=== PATIENT | female | born 1990 | race Caucasian/White ===

== ENCOUNTER 2017-04-05 16:59 | Inpatient (IN) | payer OTHER ==
[~2017-04-05] VITALS: Ht 157.5 cm; Wt 59.0 kg
[2017-04-05 17:00] VITALS: BP 119/87
[2017-04-05 18:01] LABS: ABSOLUTE NEUTROPHILS 7.2 thou/uL (1.4-8.2); BASOPHILS 0.8 % (0.0-2.0); EOSINOPHILS 1.6 % (0.0-3.0); HEMATOCRIT 35.5 % (37.0-47.0); HEMOGLOBIN 11.5 gm/dL (12.0-15.0); LYMPHOCYTES 16.3 % (24.0-44.0); MANUAL DIFF NO; MCH 25.3 pg (26.0-34.0); MCHC 32.5 g/dL (28.0-37.0); MCV 77.9 fL (80.0-100.0); PLATELET COUNT 366 thou/uL (150-400); POLYS 74.3 % (36.0-66.0); RBC 4.55 mil/uL (4.20-5.00); RDW 15.8 % (10.5-14.5); WBC 9.7 thou/uL (4.0-11.0)
[2017-04-05 18:11] LABS: CALCIUM 9.2 mg/dL (8.5-10.1); CREATININE 0.9 mg/dL (0.6-1.0); POTASSIUM 3.5 mmol/L (3.5-5.1)
[2017-04-05 18:15] LABS: ALBUMIN 3.6 g/dL (3.4-5.0); TOTAL BILIRUBIN 0.8 mg/dL (<0.1-1.0)
[2017-04-05 21:08] LABS: URINE BILIRUBIN NEGATIVE (Negative); URINE BLOOD TRACE (Negative); URINE COLOR YELLOW; URINE GLUCOSE-RANDOM* NEGATIVE (Negative); URINE KETONES TRACE (Negative); URINE LEUKOCYTES-REFLEX NEGATIVE (Negative); URINE PROTEIN (DIPSTICK) NEGATIVE (Negative); URINE UROBILINOGEN 0.2 E.U./dl (0.2-1.0)
[2017-04-05 22:30] VITALS: BP 108/69
[2017-04-05 22:49] VITALS: BP 127/73
[2017-04-06 04:33] VITALS: BP 103/50
[2017-04-06 07:56] LABS: HEMATOCRIT 29.5 % (37.0-47.0)
[2017-04-06 07:59] LABS: HEMOGLOBIN 9.6 gm/dL (12.0-15.0)
[2017-04-06 08:00] VITALS: BP 118/73
[2017-04-06 11:18] LABS: APTT 29.9 Seconds (24.5-32.8)
[2017-04-06 15:56] LABS: HEMATOCRIT 32.4 % (37.0-47.0); HEMOGLOBIN 10.5 gm/dL (12.0-15.0)
[2017-04-06 16:00] VITALS: BP 116/80
[2017-04-06 20:45] VITALS: BP 105/63
[2017-04-06 20:58] LABS: HEMATOCRIT 33.3 % (37.0-47.0); HEMOGLOBIN 10.6 gm/dL (12.0-15.0)
[2017-04-07 04:45] VITALS: BP 95/53
[2017-04-07 05:46] LABS: HEMOGLOBIN 10.1 gm/dL (12.0-15.0); MCH 25.6 pg (26.0-34.0); MCHC 32.7 g/dL (28.0-37.0); MCV 78.3 fL (80.0-100.0); RBC 3.96 mil/uL (4.20-5.00); RDW 16.3 % (10.5-14.5); WBC 6.7 thou/uL (4.0-11.0)
[2017-04-07 08:57] VITALS: BP 109/66
[2017-04-07 16:37] VITALS: BP 99/66
[2017-04-07 20:18] VITALS: BP 117/72
[2017-04-08 04:25] VITALS: BP 100/63
[2017-04-08 07:34] VITALS: BP 107/70
[2017-04-08 09:17] LABS: HEMATOCRIT 32.4 % (37.0-47.0); HEMOGLOBIN 10.6 gm/dL (12.0-15.0)
[2017-04-08 09:38] LABS: ALBUMIN 2.9 g/dL (3.4-5.0); CALCIUM 8.4 mg/dL (8.5-10.1); CREATININE 0.6 mg/dL (0.6-1.0); POTASSIUM 3.9 mmol/L (3.5-5.1); TOTAL BILIRUBIN 0.3 mg/dL (<0.1-1.0); TOTAL PROTEIN 6.2 g/dL (6.4-8.2)
[2017-04-08] MEDS ORDERED: HYDROCODON-ACE1 EAC7 PO (10:25)
[2017-04-08] MEDS ORDERED: ALPRAZOLAM 0.0.25 M1 PO (10:25)
[2017-04-08] MEDS ORDERED: PANTOPRAZOLE SO40 M1 PO (10:26)
[2017-04-08] MEDS ORDERED: FLONASE 0.05%50 MCG NASAL (10:26)
[2017-04-08] MEDS ORDERED: CARAFATE 1 GM TA1 G1 PO (10:31)
[2017-04-08 11:15] VITALS: BP 107/70
== END 2017-04-08 13:00 | disposition home or self-care (01) | DRG 378 ==
LOC: ER 16:59 → EROBS 21:22 → 4S 21:22
PROVIDERS: Family Medicine; Hospitalist; Internal Medicine Gastroenterology; Nurse Practitioner Acute Care; Physician Assistant
DX: K92.0 Hematemesis (principal); K56.60 Unspecified intestinal obstruction; K51.90 Ulcerative colitis, unspecified, without complications; Q27.30 Arteriovenous malformation, site unspecified; E10.9 Type 1 diabetes mellitus without complications; F32.9 Major depressive disorder, single episode, unspecified; D64.9 Anemia, unspecified; F43.10 Post-traumatic stress disorder, unspecified; X58.XXXA Exposure to other specified factors, initial encounter; K21.9 Gastro-esophageal reflux disease without esophagitis; F41.9 Anxiety disorder, unspecified; F42.9 Obsessive-compulsive disorder, unspecified; Z88.6 Allergy status to analgesic agent; Z88.0 Allergy status to penicillin; Z90.49 Acquired absence of other specified parts of digestive tract; Z98.84 Bariatric surgery status; Z79.4 Long term (current) use of insulin; Z79.899 Other long term (current) drug therapy; Z86.718 Personal history of other venous thrombosis and embolism; Z79.01 Long term (current) use of anticoagulants; Z90.3 Acquired absence of stomach [part of]; Z93.2 Ileostomy status; Y93.89 Activity, other specified; Y92.89 Other specified places as the place of occurrence of the external cause; Y99.8 Other external cause status; Z83.3 Family history of diabetes mellitus
CPT/HCPCS: 10195

== ENCOUNTER 2017-04-18 13:08 | Emergency (ER) | payer OTHER ==
[~2017-04-18] VITALS: Ht 157.5 cm; Wt 54.4 kg
[~2017-04-18 13:08] MED LIST: ALPRAZOLAM 0.0.25 M1 PO; CARAFATE 1 GM TA1 G1 PO; FLONASE 0.05%50 MCG NASAL; HYDROCODON-ACE1 EAC7 PO; PANTOPRAZOLE SO40 M1 PO
[2017-04-18 13:29] LABS: URINE BILIRUBIN 1+ (Negative); URINE BLOOD NEGATIVE (Negative); URINE COLOR YELLOW; URINE GLUCOSE-RANDOM* NEGATIVE (Negative); URINE KETONES NEGATIVE (Negative); URINE LEUKOCYTES-REFLEX 2+ (Negative); URINE PROTEIN (DIPSTICK) 1+ (Negative); URINE UROBILINOGEN 0.2 E.U./dl (0.2-1.0)
[2017-04-18 13:30] LABS: ICTOTEST (BILI CONFIRMATORY) Negative (Negative)
[2017-04-18 13:39] LABS: CASTS None Seen /LPF (None Seen); CRYSTALS None Seen /LPF (None Seen); SQUAMOUS 4-10 Moderate /LPF (0-3); URINE RBC None Seen /HPF (0-2); URINE WBC-REFLEX 0-5 Rare /HPF (0-5)
[2017-04-18 13:59] LABS: ABSOLUTE NEUTROPHILS 5.2 thou/uL (1.4-8.2); BASOPHILS 0.8 % (0.0-2.0); EOSINOPHILS 2.2 % (0.0-3.0); HEMATOCRIT 34.4 % (37.0-47.0); HEMOGLOBIN 11.2 gm/dL (12.0-15.0); LYMPHOCYTES 18.2 % (24.0-44.0); MCH 26.3 pg (26.0-34.0); MCHC 32.7 g/dL (28.0-37.0); MCV 80.5 fL (80.0-100.0); MONOCYTES 4.5 % (1.0-8.0); PLATELET COUNT 384 thou/uL (150-400); POLYS 74.3 % (36.0-66.0); RBC 4.27 mil/uL (4.20-5.00); RDW 21.1 % (10.5-14.5)
[2017-04-18 14:05] LABS: MANUAL DIFF NO
[2017-04-18 14:11] LABS: CALCIUM 8.8 mg/dL (8.5-10.1); CREATININE 0.7 mg/dL (0.6-1.0); POTASSIUM 3.9 mmol/L (3.5-5.1)
[2017-04-18 14:16] LABS: ALBUMIN 3.3 g/dL (3.4-5.0); TOTAL BILIRUBIN 0.5 mg/dL (<0.1-1.0); TOTAL PROTEIN 7.4 g/dL (6.4-8.2)
[2017-04-18] MEDS ORDERED: PHENERGAN 25 MG25 M1 PO (16:07)
[2017-04-18] MEDS ORDERED: HYDROCODONE-AP1 EAC6 PO (16:07)
== END 2017-04-18 16:22 | disposition home or self-care (01) ==
LOC: ER 13:08
PROVIDERS: Physician Assistant
DX: G89.29 Other chronic pain (principal); R10.84 Generalized abdominal pain; R11.2 Nausea with vomiting, unspecified; K50.90 Crohn's disease, unspecified, without complications; E10.9 Type 1 diabetes mellitus without complications; F43.10 Post-traumatic stress disorder, unspecified; F32.9 Major depressive disorder, single episode, unspecified; F42.9 Obsessive-compulsive disorder, unspecified; Z90.49 Acquired absence of other specified parts of digestive tract; Z86.718 Personal history of other venous thrombosis and embolism; Z88.5 Allergy status to narcotic agent; Z88.0 Allergy status to penicillin; Z88.6 Allergy status to analgesic agent; Z79.4 Long term (current) use of insulin

== ENCOUNTER 2017-05-28 21:13 | Emergency (ER) | payer OTHER ==
[~2017-05-28] VITALS: Ht 157.5 cm; Wt 54.4 kg
[~2017-05-28 21:13] MED LIST changes: +HYDROCODONE-AP1 EAC6 PO; +PHENERGAN 25 MG25 M1 PO
[2017-05-28 23:54] LABS: ABSOLUTE NEUTROPHILS 4.6 thou/uL (1.4-8.2); BASOPHILS 0.8 % (0.0-2.0); EOSINOPHILS 9.9 % (0.0-3.0); HEMATOCRIT 33.3 % (37.0-47.0); HEMOGLOBIN 10.7 gm/dL (12.0-15.0); LYMPHOCYTES 25.6 % (24.0-44.0); MCH 26.4 pg (26.0-34.0); MCV 82.5 fL (80.0-100.0); PLATELET COUNT 410 thou/uL (150-400); POLYS 57.7 % (36.0-66.0); RBC 4.04 mil/uL (4.20-5.00); WBC 7.9 thou/uL (4.0-11.0)
[2017-05-28 23:57] LABS: MANUAL DIFF NO
[2017-05-29 00:03] LABS: CALCIUM 8.8 mg/dL (8.5-10.1); CREATININE 0.6 mg/dL (0.6-1.0); POTASSIUM 4.1 mmol/L (3.5-5.1)
[2017-05-29 00:09] LABS: ALBUMIN 3.2 g/dL (3.4-5.0); TOTAL BILIRUBIN 0.3 mg/dL (<0.1-1.0); TOTAL PROTEIN 7.4 g/dL (6.4-8.2)
== END 2017-05-29 01:37 | disposition home or self-care (01) ==
LOC: ER 21:13
PROVIDERS: Nurse Practitioner Family
DX: Z43.1 Encounter for attention to gastrostomy (principal); R10.12 Left upper quadrant pain; E11.9 Type 2 diabetes mellitus without complications; F32.9 Major depressive disorder, single episode, unspecified; Z98.890 Other specified postprocedural states; Z86.718 Personal history of other venous thrombosis and embolism; Z88.0 Allergy status to penicillin; Z88.6 Allergy status to analgesic agent

== ENCOUNTER 2017-06-26 11:56 | Emergency (ER) | payer OTHER ==
[~2017-06-26] VITALS: Ht 160 cm; Wt 72.6 kg
[2017-06-26 12:26] LABS: HEMATOCRIT 37.4 % (37.0-47.0); HEMOGLOBIN 12.1 gm/dL (12.0-15.0); MCH 25.7 pg (26.0-34.0); MCHC 32.4 g/dL (28.0-37.0); MCV 79.3 fL (80.0-100.0); PLATELET COUNT 479 thou/uL (150-400); RBC 4.71 mil/uL (4.20-5.00); WBC 12.9 thou/uL (4.0-11.0)
[2017-06-26 12:30] LABS: MANUAL DIFF YES
[2017-06-26 12:35] LABS: ANION GAP 12 mmol/L (7-16); BUN 21 mg/dL (7-18); CHLORIDE 105 mmol/L (98-107); CO2 22 mmol/L (21-32); CREATININE 0.7 mg/dL (0.6-1.0); GLUCOSE 133 mg/dL (74-106); POTASSIUM 3.7 mmol/L (3.5-5.1); SODIUM 139 mmol/L (136-145)
[2017-06-26 12:41] LABS: ALBUMIN 3.6 g/dL (3.4-5.0); ALKALINE PHOSPHATASE 102 U/L (46-116); DIRECT BILIRUBIN < 0.1 mg/dL (<0.1-0.3); SGOT 23 U/L (15-37); SGPT 31 U/L (30-65); TOTAL BILIRUBIN 0.7 mg/dL (<0.1-1.0); TOTAL PROTEIN 7.7 g/dL (6.4-8.2)
[2017-06-26 13:24] LABS: ABSOLUTE NEUTROPHILS 8.8 thou/uL (1.4-8.2); METAMYELOCYTES 1 %; TOTAL CELL COUNT 100
[2017-06-26 13:25] LABS: ANISOCYTOSIS 1+; POLYCHROMASIA OCCASIONAL
[2017-06-26] MEDS ORDERED: ZOFRAN ODT4 MG PO (14:21)
[2017-06-26] MEDS ORDERED: PHENERGAN 25 MG25 M1 PO (14:21)
[2017-06-26] MEDS ORDERED: PROMS25 WY RECTAL (14:21)
== END 2017-06-26 14:58 | disposition home or self-care (01) ==
LOC: ER 11:56
PROVIDERS: Emergency Medicine
DX: R10.84 Generalized abdominal pain (principal); R11.2 Nausea with vomiting, unspecified; K50.90 Crohn's disease, unspecified, without complications; E10.9 Type 1 diabetes mellitus without complications; F43.10 Post-traumatic stress disorder, unspecified; F32.9 Major depressive disorder, single episode, unspecified; F42.9 Obsessive-compulsive disorder, unspecified; Z90.49 Acquired absence of other specified parts of digestive tract; Z86.718 Personal history of other venous thrombosis and embolism; Z88.6 Allergy status to analgesic agent; Z88.0 Allergy status to penicillin

== ENCOUNTER 2018-07-09 18:10 | Inpatient (IN) | payer OTHER ==
[~2018-07-09] VITALS: Ht 154.9 cm; Wt 57.6 kg
--- NOTE | ~2018-07-09 | HC ---
[facility] [place] [address] CONSULTATION Name: KENTRELL BREWER Room #: 456-P [facility] IN ..#: [id number] Admission: 07/09/18 Attend Phys: Blaine Tariq MD Discharge: 07/15/18 Date of : 86 Report #: [id number] THIS REPORT FOR: //name// CC: TANYA physician/PCP Aretha Borges MD DATE OF SERVICE: 07/10/2018 HISTORY OF PRESENT ILLNESS: The patient is a 28-year-old female with a history of Crohn's disease. Apparently has had a total colectomy, has a permanent ileostomy, who began having nausea, vomiting, and hematemesis last evening, also complains of abdominal pain. She was on Carafate at home. Denies any NSAIDs. Apparently, he has had a gastric bypass in the past, history of gastric ulcers that were not responding to therapy and she told me she had surgery in [place] in 2016 for recurrent upper GI bleed from her stomach, in which two-thirds of her stomach was removed apparently. Her last upper endoscopy was a year ago at [facility] apparently with a bleeding ulcer at that time. I do not have a copy of these results. Her last episode of vomiting was at 3 this morning. Her hemoglobin on admission was 8.4, 7.9 on repeat. Her last hemoglobin to compare was 9.5 in 08/2017 when she was hospitalized here, apparently is not being followed by a peanut separator. She is not taking any medications for Crohn's disease at this time. She does not believe she had Crohn's disease involving her stomach in the past. The stool in her ileostomy is yellow-brown, no evidence of melanotic stools. She denies any chest pain or shortness of breath. She does complain of a headache. She is currently n.p.o. IV Zofran has been helpful. The patient is on a PPI drip at this time. A CT scan of the abdomen and pelvis is performed on admission, which showed a mild interval increase in the size of multicystic mass along the posterior left margin of the uterus, nonspecific. No evidence of bowel obstruction or other acute process noted. Postsurgical changes of prior gastric bypass and bowel resection were noted with ostomy in the right lower quadrant. PAST MEDICAL HISTORY: Crohn's disease as described above, history of total colectomy, previous history of peptic ulcer disease, history of upper GI bleed from gastric ulcers, status post partial resection of her stomach, previous history of gastric bypass. At one point, the patient had a feeding tube, previous history of small bowel obstruction. Also with a history of diabetes, PTSD, depression, previous appendectomy. ALLERGIES: IOHEXOL, TORADOL, and PENICILLIN. MEDICATIONS ON ADMISSION: Carafate, Zofran p.r.n., insulin. SOCIAL HISTORY: She denies any tobacco or alcohol use. [address] [address] CONSULTATION Name: KENTRELL BREWER Room #: 456-P [facility] IN M.R.#: [id number] Admission: 07/09/18 Attend Phys: Blaine Tariq MD Discharge: 07/15/18 Date of : 86 Report #: [id number] FAMILY HISTORY: Negative for colon cancer or inflammatory bowel disease. PHYSICAL EXAMINATION: VITAL SIGNS: Temperature is 98.5, pulse 79, blood pressure 94/45, respiratory rate is 18. GENERAL: She is alert and oriented times 3, in no acute distress. HEENT: Sclerae nonicteric. Oropharynx clear. NECK: Supple, without lymphadenopathy. CARDIOVASCULAR: Regular rate and rhythm. CHEST: Clear to auscultation bilaterally. ABDOMEN: Soft. She is mildly tender to palpation in midepigastrium. Midline incision is well healed. Ileostomy is noted in the right lower quadrant. There is a brown-yellow stool within the ileostomy bag. There is no evidence of blood or melena. EXTREMITIES: No cyanosis, clubbing or edema. LABORATORY DATA: Sodium 135, potassium 4.4, chloride 103, bicarbonate 24, BUN 13, creatinine 0.6, glucose 97, AST 33, lipase 157, total bilirubin 0.6, alkaline phosphatase 80, ALT is 22, total protein 7.7, albumin 3.7. WBC is 6.8, hemoglobin 7.9, MCV is 65.1, platelet count is 347. HCG is negative. ASSESSMENT AND PLAN: 1. Hematemesis. The patient with a previous history of gastric ulcers, has had partial gastric resection. Agree with monitoring hemoglobin closely. We will start ice chips today. There is no evidence of blood in her ostomy at this time. Agree with proton pump inhibitor drip, which has already been started. We will plan on upper endoscopy in the morning more emergently if needed this afternoon or evening, n.p.o. after midnight. 2. History of Crohn's disease, although there was a mention of ulcerative colitis as well. The patient has had previous total colectomy and has a permanent ileostomy. The patient denies any history of Crohn's disease involving her stomach in the past that she is aware of. We will make further recommendations after endoscopy tomorrow. Thank you for allowing me to participate in her care. <ELECTRONICALLY SIGNED> By: Morro Hernandez MD 07/20/18 0823 [id number] Morro Hernandez, /judith
[~2018-07-09 18:10] MED LIST changes: +NORCO 5-325 TA1 EACH PO; +NOVOLIN R100 UNIT/3; +PROMS25 WY RECTAL; +PROTONIX40 M1 PO; +ZOFRAN ODT4 MG PO
[2018-07-09 18:37] VITALS: BP 122/67
[2018-07-09 20:25] LABS: ABSOLUTE NEUTROPHILS 4.1 thou/uL (1.4-8.2); BASOPHILS 1.3 % (0.0-2.0); EOSINOPHILS 2.5 % (0.0-3.0); HEMOGLOBIN 8.4 gm/dL (12.0-15.0); MCH 20.1 pg (26.0-34.0); MCHC 30.9 g/dL (28.0-37.0); MCV 65.1 fL (80.0-100.0); MONOCYTES 7.6 % (1.0-8.0); PLATELET COUNT 347 thou/uL (150-400); POLYS 59.6 % (36.0-66.0); RBC 4.15 mil/uL (4.20-5.00); RDW 16.3 % (10.5-14.5); WBC 6.8 thou/uL (4.0-11.0)
[2018-07-09 20:33] LABS: CALCIUM 9.4 mg/dL (8.5-10.1); CREATININE 0.6 mg/dL (0.6-1.0); POTASSIUM 4.4 mmol/L (3.5-5.1)
[2018-07-09 20:39] LABS: ALBUMIN 3.7 g/dL (3.4-5.0); TOTAL PROTEIN 7.7 g/dL (6.4-8.2)
[2018-07-09 20:40] LABS: TOTAL BILIRUBIN 0.6 mg/dL (<0.1-1.0)
[2018-07-09 20:47] LABS: URINE BILIRUBIN NEGATIVE (Negative); URINE BLOOD NEGATIVE (Negative); URINE CLARITY CLEAR; URINE COLOR YELLOW; URINE GLUCOSE-RANDOM* NEGATIVE (Negative); URINE KETONES NEGATIVE (Negative); URINE LEUKOCYTES-REFLEX NEGATIVE (Negative); URINE NITRITE-REFLEX NEGATIVE (Negative); URINE PROTEIN (DIPSTICK) NEGATIVE (Negative); URINE SPECIFIC GRAVITY >= 1.030 (1.005-1.035); URINE UROBILINOGEN 0.2 E.U./dl (0.2-1.0)
[2018-07-09 22:34] VITALS: BP 107/60
[2018-07-09 23:00] LABS: HYPOCHROMASIA 3+
[2018-07-09 23:01] LABS: ANISOCYTOSIS 1+; MICROCYTES 1+
[2018-07-10 01:34] LABS: HEMATOCRIT 25.1 % (37.0-47.0); HEMOGLOBIN 7.9 gm/dL (12.0-15.0)
[2018-07-10 08:08] VITALS: BP 94/45
[2018-07-10 16:01] VITALS: BP 108/61
[2018-07-10 19:05] VITALS: BP 109/59
[2018-07-11 01:13] LABS: HEMATOCRIT 24.9 % (37.0-47.0); HEMOGLOBIN 7.7 gm/dL (12.0-15.0); MCH 20.1 pg (26.0-34.0); MCHC 30.8 g/dL (28.0-37.0); MCV 65.3 fL (80.0-100.0); RBC 3.82 mil/uL (4.20-5.00); RDW 16.7 % (10.5-14.5); WBC 4.4 thou/uL (4.0-11.0)
[2018-07-11 01:24] LABS: CALCIUM 8.4 mg/dL (8.5-10.1); CREATININE 0.7 mg/dL (0.6-1.0); POTASSIUM 3.5 mmol/L (3.5-5.1)
[2018-07-11 08:00] VITALS: BP 92/60
[2018-07-11 19:46] VITALS: BP 107/69
[2018-07-12 00:08] VITALS: BP 92/55
[2018-07-12 01:56] LABS: CREATININE 0.6 mg/dL (0.6-1.0); POTASSIUM 3.2 mmol/L (3.5-5.1)
[2018-07-12 01:58] LABS: HEMATOCRIT 23.4 % (37.0-47.0); HEMOGLOBIN 7.1 gm/dL (12.0-15.0); MCH 19.7 pg (26.0-34.0); MCHC 30.4 g/dL (28.0-37.0); MCV 64.9 fL (80.0-100.0); RBC 3.61 mil/uL (4.20-5.00); RDW 16.4 % (10.5-14.5); WBC 5.1 thou/uL (4.0-11.0)
[2018-07-12 08:00] VITALS: BP 107/67
[2018-07-12 19:06] VITALS: BP 110/71
[2018-07-12 22:48] VITALS: BP 110/71
[2018-07-13 06:02] LABS: HEMOGLOBIN 7.3 gm/dL (12.0-15.0); RDW 16.5 % (10.5-14.5)
[2018-07-13 06:05] LABS: HEMATOCRIT 23.3 % (37.0-47.0); MCH 20.3 pg (26.0-34.0); MCHC 31.2 g/dL (28.0-37.0); RBC 3.59 mil/uL (4.20-5.00)
[2018-07-13 06:06] LABS: WBC 1.9 thou/uL (4.0-11.0)
[2018-07-13 06:25] LABS: CALCIUM 8.2 mg/dL (8.5-10.1); CREATININE 0.6 mg/dL (0.6-1.0); POTASSIUM 3.2 mmol/L (3.5-5.1)
[2018-07-13 07:02] LABS: HEMOGLOBIN 7.4 gm/dL (12.0-15.0); MCH 20.2 pg (26.0-34.0); MCHC 30.8 g/dL (28.0-37.0); MCV 65.6 fL (80.0-100.0); RBC 3.67 mil/uL (4.20-5.00); RDW 16.6 % (10.5-14.5); WBC 2.3 thou/uL (4.0-11.0)
[2018-07-13 07:39] VITALS: BP 92/48
[2018-07-13 09:11] LABS: FOLIC ACID 18.9 ng/mL (8.6-58.9)
[2018-07-13 13:23] VITALS: BP 100/56
[2018-07-13 18:53] VITALS: BP 110/71
[2018-07-14 02:56] VITALS: BP 110/71
[2018-07-14 08:12] VITALS: BP 103/50
[2018-07-14 10:17] LABS: ABSOLUTE NEUTROPHILS 2.3 thou/uL (1.4-8.2); BASOPHILS 0.6 % (0.0-2.0); EOSINOPHILS 5.9 % (0.0-3.0); HEMATOCRIT 25.4 % (37.0-47.0); HEMOGLOBIN 7.8 gm/dL (12.0-15.0); LYMPHOCYTES 27.5 % (24.0-44.0); MCH 20.2 pg (26.0-34.0); MCHC 30.8 g/dL (28.0-37.0); MCV 65.8 fL (80.0-100.0); MONOCYTES 4.4 % (1.0-8.0); PLATELET COUNT 288 thou/uL (150-400); POLYS 61.6 % (36.0-66.0); RBC 3.87 mil/uL (4.20-5.00); RDW 16.8 % (10.5-14.5); WBC 3.7 thou/uL (4.0-11.0)
[2018-07-14 10:47] LABS: ANISOCYTOSIS 1+; HYPOCHROMASIA 2+; MICROCYTES 2+; PLATELET ESTIMATE NORMAL; POLYCHROMASIA 1+
[2018-07-14 15:51] LABS: HEMATOCRIT 26.9 % (37.0-47.0); HEMOGLOBIN 8.4 gm/dL (12.0-15.0); MCHC 31.1 g/dL (28.0-37.0); MCV 64.4 fL (80.0-100.0); RBC 4.18 mil/uL (4.20-5.00); RDW 16.5 % (10.5-14.5); WBC 7.4 thou/uL (4.0-11.0)
[2018-07-14 19:45] VITALS: BP 94/49
[2018-07-14 23:07] VITALS: BP 94/49
[2018-07-15 05:28] LABS: HEMATOCRIT 26.2 % (37.0-47.0); HEMOGLOBIN 8.1 gm/dL (12.0-15.0); MCH 19.9 pg (26.0-34.0); MCHC 30.8 g/dL (28.0-37.0); MCV 64.4 fL (80.0-100.0); RBC 4.07 mil/uL (4.20-5.00); RDW 17.1 % (10.5-14.5); WBC 4.9 thou/uL (4.0-11.0)
[2018-07-15 05:42] LABS: CALCIUM 8.3 mg/dL (8.5-10.1); CREATININE 0.7 mg/dL (0.6-1.0); MAGNESIUM 1.8 mg/dL (1.8-2.4)
[2018-07-15 05:46] LABS: POTASSIUM 2.7 mmol/L (3.5-5.1)
[2018-07-15 08:45] VITALS: BP 98/60
[2018-07-15] MEDS ORDERED: IRON325 PO (13:23)
[2018-07-15] MEDS ORDERED: PROTONIX40 M1 PO (13:23)
[2018-07-15 15:52] VITALS: BP 98/60
== END 2018-07-15 17:45 | disposition home or self-care (01) | DRG 378 ==
LOC: ER 18:10 → 4W 21:54 → EROBS 21:54 → 4W 22:31
PROVIDERS: Emergency Medicine; Hospitalist; Internal Medicine; Internal Medicine Gastroenterology; Nurse Practitioner Acute Care
PROC: 0DJ08ZZ Inspection of Upper Intestinal Tract, Via Natural or Artificial Opening Endoscopic (ICD-10-PCS; principal; 2018-07-11)
DX: K92.2 Gastrointestinal hemorrhage, unspecified (principal); K50.90 Crohn's disease, unspecified, without complications; D62 Acute posthemorrhagic anemia; E10.9 Type 1 diabetes mellitus without complications; K92.0 Hematemesis; F32.9 Major depressive disorder, single episode, unspecified; E83.42 Hypomagnesemia; A08.4 Viral intestinal infection, unspecified; Z98.84 Bariatric surgery status; Z93.2 Ileostomy status; Z90.49 Acquired absence of other specified parts of digestive tract; Z88.0 Allergy status to penicillin; Z88.8 Allergy status to other drugs, medicaments and biological substances; Z87.11 Personal history of peptic ulcer disease; Z83.3 Family history of diabetes mellitus; Z98.0 Intestinal bypass and anastomosis status; T18.2XXA Foreign body in stomach, initial encounter; X58.XXXA Exposure to other specified factors, initial encounter; Y93.89 Activity, other specified; Y92.89 Other specified places as the place of occurrence of the external cause; Y99.8 Other external cause status
CPT/HCPCS: 10040; 62110; 62900; 70005

== ENCOUNTER 2018-12-03 13:48 | Inpatient (IN) | payer OTHER ==
[~2018-12-03] VITALS: Ht 152.4 cm; Wt 52.2 kg
--- NOTE | ~2018-12-03 | P ---
[facility] [place] [address] PROCEDURE REPORT Name: KENTRELL BREWER Room #: 354-P ADM IN M.R.#: [id number] Admission: 12/03/18 ������������������ Attend Phys: Triston Arana MD Discharge: ������������������ Date of : 86 Report #: [id number] THIS REPORT FOR: //name// CC: TANYA physician/PCP Triston Arana [facility] DATE OF SERVICE: 12/03/2018 INPATIENT UPPER ENDOSCOPY: BRIEF HISTORY: The patient is a 28-year-old woman with history of Crohn's disease, status proctocolectomy with end ileostomy. After surgery, she had bleeding ulcers and had a gastrectomy in [place]. She reports this was due to ulcer disease. It is not clear whether or not the ulcers were related to Crohn's disease. She now presents with another episode of recurrent upper GI bleeding. PREOPERATIVE DIAGNOSIS: Upper gastrointestinal bleeding. POSTOPERATIVE DIAGNOSES: 1. Upper gastrointestinal bleeding. 2. 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 MEDICATIONS: Deep sedation with propofol per anesthesia. SPECIMEN: Biopsies of gastric mucosa, rule out H. pylori. ESTIMATED BLOOD LOSS: 3 mL. PROCEDURE: EGD with biopsy. FINDINGS: Prior to propofol sedation, procedure of upper endoscopy discussed with the patient, all potential risks and its complications. She indicates she understands and desires to proceed. DESCRIPTION OF PROCEDURE: With the patient in left lateral decubitus position, the Olympus video endoscope was inserted in the cervical esophagus under direct vision without difficulty. Examination of this organ through its entire length revealed normal esophageal mucosa down the squamocolumnar junction. The squamocolumnar junction was unremarkable. A hiatus hernia was not seen. No strictures or masses were seen. There was no blood in the esophagus. The scope was advanced in the stomach and she was noted to have a very small gastric pouch. She tells me she had surgery due to bleeding ulcers. However, findings are more suggestive of bariatric William-en-Y gastric bypass. There is a very [facility] [address] [place] [address] PROCEDURE REPORT Name: KENTRELL BREWER Room #: 354-P [facility] IN M.R.#: [id number] Admission: 12/03/18 ������������������ Attend Phys: Triston Arana MD Discharge: ������������������ Date of : 86 Report #: [id number] small stomach pouch. There was blood and clot in this pouch. It was red blood. We lavaged and suction cleared as much as clots we could. There appeared to be a large clot adherent to the gastrojejunal anastomosis. This was cleared away. Very carefully, the entire length of the anastomosis was inspected. I could not find evidence of ulcer or bleeding site. I did not see evidence of exposed vessels or vascular ectasias. I was also able to advance the scope into the very short blind limb of the jejunum and it was normal as well. We then passed the scope beyond the anastomosis in the initial 8-10 inches beyond the anastomosis, it was free of blood; however, beyond that there was blackish material coating the mucosa and there were some clots. However, active bleeding was not seen. This appeared to be old blood. The red blood was noted to be in the gastric pouch. The scope was advanced to its full length and I did encounter a William-en-Y anastomosis. However, the scope was not long enough to enter the William-en-Y limb. The scope was drawn back proximally. Just distal to the gastric pouch, I was able to retroflex the scope and visualized the anastomosis in the retroflexed position and no abnormalities were seen. No ulcers or bleeding lesions were seen. We withdrew the scope back into the stomach pouch and very carefully irrigated, washed away as much debris and blood as possible. Reasonably good views were obtained. Again, I could not find evidence of ulcer or bleeding lesion or bleeding site. I was able to retroflex the scope and see the squamocolumnar junction in the retroflexed position and it appeared to be unremarkable. Multiple passes were made to scope and we examined the entire stomach pouch as possible as well as the anastomosis and no obvious bleeding sites were seen. I did obtain 2 mucosal biopsies to evaluate for H. pylori. Scope was withdrawn and the patient tolerated the procedure well. DISPOSITION: The patient with recurrent GI bleeding. She has had previous gastric surgery. The anatomy is confusing to me as she tells me she had the surgery due to ulcers. However, the findings are suggestive of a William-en-Y gastric bypass surgery. At this point in time, the site of bleeding is not identified, although most likely spot would be along the gastrojejunal anastomosis. We will have her continue sucralfate. We will administer as a liquid. Continue to monitor for bleeding. She also has complaints of abdominal pain and I do not see evidence of active ulcer disease. Bleeding site not identified. We will continue to monitor for bleeding. We will start her on clear liquids. We will use sucralfate 4 times daily. Also, see if we can obtain records from [place] to further understand what was done surgically. ��������������������������������������������� ���������������������������������������� By: ��������������������������������������������� 1244 2300 Jagdeep Bush MD /nt
[~2018-12-03 13:48] MED LIST changes: +BACTRIM DS TAB1 EACH PO; +IRON325 PO; +KEPPRA250 MG PO; +NORCO 5-325 TA1 EAC1 PO; +TRAMADOL 50 MG50 MG PO
[2018-12-03 13:49] VITALS: BP 123/69
[2018-12-03 14:32] LABS: URINE BILIRUBIN NEGATIVE (Negative); URINE BLOOD NEGATIVE (Negative); URINE GLUCOSE-RANDOM* NEGATIVE (Negative); URINE KETONES NEGATIVE (Negative); URINE LEUKOCYTES-REFLEX TRACE (Negative); URINE PROTEIN (DIPSTICK) NEGATIVE (Negative); URINE UROBILINOGEN 0.2 E.U./dl (0.2-1.0)
[2018-12-03 14:35] LABS: URINE CLARITY SL HAZY; URINE COLOR YELLOW; URINE NITRITE-REFLEX POSITIVE (Negative)
[2018-12-03 14:38] LABS: BACTERIA-REFLEX >30 Many /HPF (None Seen); SQUAMOUS 4-10 Moderate /LPF (0-3); URINE RBC None Seen /HPF (0-2); URINE WBC-REFLEX >25 Many /HPF (0-5)
[2018-12-03 14:39] LABS: CASTS None Seen /LPF (None Seen); CRYSTALS None Seen /LPF (None Seen)
[2018-12-03 15:02] LABS: ABSOLUTE NEUTROPHILS 2.5 thou/uL (1.4-8.2); BASOPHILS 1.4 % (0.0-2.0); EOSINOPHILS 6.7 % (0.0-3.0); HEMATOCRIT 26.4 % (37.0-47.0); LYMPHOCYTES 35.3 % (24.0-44.0); MCH 20.1 pg (26.0-34.0); MCHC 30.5 g/dL (28.0-37.0); MONOCYTES 6.8 % (1.0-8.0); PLATELET COUNT 239 thou/uL (150-400); POLYS 49.8 % (36.0-66.0); RDW 17.3 % (10.5-14.5); WBC 5.1 thou/uL (4.0-11.0)
[2018-12-03 15:26] LABS: CALCIUM 8.7 mg/dL (8.5-10.1); CREATININE 0.6 mg/dL (0.6-1.0); POTASSIUM 3.7 mmol/L (3.5-5.1)
[2018-12-03 15:32] LABS: ALBUMIN 3.8 g/dL (3.4-5.0); ANISOCYTOSIS 1+; HYPOCHROMASIA 1+; MICROCYTES 2+; TOTAL BILIRUBIN 0.5 mg/dL (<0.1-1.0); TOTAL PROTEIN 7.4 g/dL (6.4-8.2)
[2018-12-03 18:33] VITALS: BP 123/69
[2018-12-03 18:43] VITALS: BP 138/68
[2018-12-03 19:03] VITALS: BP 123/77
[2018-12-03 19:42] LABS: HEMATOCRIT 27.1 % (37.0-47.0)
[2018-12-04 00:18] VITALS: BP 92/51
--- NOTE | 2018-12-04 02:18 | NUR ---
PATIENT ARRIVED PER CART. IS ALERT X 4. SKIN WARM AND DRY. RESP EVEN AND UNLABORED. CAME IN TO ED DUE TO BLOOD EMESISI. HAD HAD SOME LAST NIGHT. NONE SINCE ARRIVAL TO ED OR FLOOR. ALSO WOKE UP AND HAD SOME FACIAL SWELLING AND DID NOT KNOW WHY. IV STARTED IN ED. IV FLUSHES WELL. GOT SETTLED IN ROOM NAD CALLED SHE WAS SUPPOSE TO HAVE A CT WITH CONTRAST AND SHE USUALLY GETS BENEDRYL FOR ITCHING. CALLED AND RECEIVED ORDERS FOR BENEDRYL. AND ALSO PEPCID IV. PATIENT TAKEN PER W/C WITH RN AND AIDE. SONU CT WELL. BACK TO ROOM AND ASSESSMENT DONE. HAS A ILEOSTOMY ON RIGHT LOWER ABDOMEN WITH STOOL PRESENT. ALSO HAS A UTI+. UP TO BATHROOM AND VOIDS WELL PER JEANIE. COMPLAINS OF PAIN IN ABDOMEN THAT RADIATES TO RIGHT KIDNEY. PAIN MEDICATION GIVEN PER REQUEST. BACK TO BED AND A NEW IV STARTED PER RN FROM ICU. #22 IN LEFT FA. NS AND PROTONIX GTT GOING ALSO HAD AN ANTIBIOTICS ORDERED. FENTQANYL GIVEN FOR PAIN WITH SOME RELIEF. ALSO GIVEN LORAZEPAM FOR HWER ANXIETY WHICH DID HELP. HAS BEED SLEEPING SINCE. HAS NO SKIN ISSUES. WILL CONTINUE TO OBSERVE AND MONITOR. IV FLUIDS INFUSING WELL.
[2018-12-04 04:46] VITALS: BP 102/51
[2018-12-04 06:15] LABS: HEMATOCRIT 27.9 % (37.0-47.0); HEMOGLOBIN 8.3 gm/dL (12.0-15.0); MCH 19.8 pg (26.0-34.0); MCHC 29.9 g/dL (28.0-37.0); MCV 66.3 fL (80.0-100.0); RBC 4.21 mil/uL (4.20-5.00); RDW 17.3 % (10.5-14.5); WBC 5.1 thou/uL (4.0-11.0)
[2018-12-04 06:27] LABS: CALCIUM 9.1 mg/dL (8.5-10.1); CREATININE 0.7 mg/dL (0.6-1.0); MAGNESIUM 2.4 mg/dL (1.8-2.4); POTASSIUM 3.5 mmol/L (3.5-5.1)
[2018-12-04 08:00] VITALS: BP 95/59
[2018-12-04 16:10] VITALS: BP 97/64
[2018-12-04 18:48] LABS: HEMATOCRIT 26.4 % (37.0-47.0)
[2018-12-04 20:15] VITALS: BP 115/70
[2018-12-05 05:10] VITALS: BP 92/54
[2018-12-05 06:26] LABS: HEMATOCRIT 26.1 % (37.0-47.0); HEMOGLOBIN 8.1 gm/dL (12.0-15.0); MCH 20.2 pg (26.0-34.0); MCHC 30.8 g/dL (28.0-37.0); MCV 65.4 fL (80.0-100.0); RBC 3.99 mil/uL (4.20-5.00); RDW 17.1 % (10.5-14.5); WBC 5.4 thou/uL (4.0-11.0)
[2018-12-05 06:37] LABS: CALCIUM 8.7 mg/dL (8.5-10.1); CREATININE 0.6 mg/dL (0.6-1.0); MAGNESIUM 1.9 mg/dL (1.8-2.4); POTASSIUM 3.4 mmol/L (3.5-5.1)
[2018-12-05 07:44] VITALS: BP 105/64
--- NOTE | 2018-12-05 07:52 | NUR ---
ASSUMED CARE OF PT AT 1900. A&Ox4, COOPERATIVE. VS STABLE BUT SBP IN 90'S WHEN SHE WAS SLEEPING. C/O ABDOMINAL PAIN RATED 9-10/10 AND REQUESTED PAIN MEDS 3X. DENIED NAUSEA. REQUESTED ANXIETY MEDICATION AT END OF SHIFT. DENIED FEELING WEAK OR SOA. DID NOT COUGH UP ANY BLOOD CLOTS OVER NOC. HAS BEEN NPO SINCE MIDNIGHT FOR EGD TODAY, CONSENT SIGNED. WAS NOT OBSERVED SLEEPING OVER NOC. SLOW PROGRESSING TOWARD POC GOALS.
--- NOTE | 2018-12-05 11:21 | NUR ---
Patient left for EGD at 1115.
--- NOTE | 2018-12-05 11:51 | NUR ---
Assumed care of patient at 0700. Vitals have been stable. Alert and oriented x4, pleasant. Complaints of abdominal pain; partial relief with PRN medications. Some intermittent nausea, but no vomiting witnessed this shift. Patient with RLQ ileostomy - self cares for. No bleeding noted in stool. No other bleeding noted thus far throughout shift. Patient has remained NPO for EGD. Left floor around 1115. Up with SBA; steady gait. Calls appropriately. Will continue to monitor.
--- NOTE | 2018-12-05 11:59 | HC ---
[facility] [place] [address] CONSULTATION Name: KENTRELL BREWER Room #: 354-P ADM IN M.R.#: [id number] Admission: 12/03/18 ������������������ Attend Phys: Triston Arana MD Discharge: ������������������ Date of : 86 Report #: [id number] THIS REPORT FOR: //name// CC: TANYA physician/PCP Triston Arana DATE OF SERVICE: 12/03/2018 REASON FOR CONSULTATION: The patient is a 28-year-old woman with a previous history of Crohn's disease, status post proctocolectomy with permanent ileostomy as well as previous gastric surgery for recurrent ulcer disease with hematemesis and abdominal pain. HISTORY OF PRESENT ILLNESS: This 28-year-old woman has a history of Crohn's disease. She was treated in [place] for her Crohn's disease. She reports that she had a total proctocolectomy in 2013. She reports that she has been on steroids before her proctocolectomy. She does not recall taking any medicines such as Remicade or Humira. She reports that the steroids did not work. To the best of her knowledge, Crohn's disease is limited to her colon. Thereafter, she developed ulcer disease and GI bleeding as well as abdominal pain. She reports she had part of her stomach removed in 2014 due to the ulcer disease. She does not know if it was felt that her gastric ulcers are related to Crohn's disease. She currently receives care at [facility]. She notes that every time she goes to clinic, she sees a different doctor. She has had several admissions to [facility] for similar problems including one in July of this year. I do not find the report, but apparently, she had an upper endoscopy, which revealed clot in the stomach, but specific lesion was not identified. The patient reports that she takes pantoprazole and sucralfate and has taken it since that time. She reports that she did well until the past few days when she developed increasing abdominal pain. The night before admission, she had vomiting with streaks of red blood; however, yesterday she reports she had multiple episodes of emesis, was bringing up blood clots and she also reports that her stool was black in her ostomy bag. She did feel dizzy, but did not have any loss of consciousness. Due to these problems, she presented to the Emergency Room at [facility] and she was admitted. She was evaluated in the Emergency Room. She had a CT scan of the abdomen and pelvis, which was done with IV contrast. She is noted to have gallstones within the gallbladder. There are no inflammatory changes. Pancreas was normal. There was bladder thickening. Stomach was reportedly unremarkable. Evidence of previous bowel surgery, surgical changes of colectomy with ileostomy. She also had laboratory studies with white count of 5.1, hemoglobin was 8 on admission and 8.3 today. It is noted last July, hemoglobin was in the 7 range. The patient does take iron, but notes that she has not been taking it for several [facility] [address] [place] [address] CONSULTATION Name: KENTRELL BREWER Room #: 354-P ADM IN M.R.#: [id number] Admission: 12/03/18 ������������������ Attend Phys: Triston Arana MD Discharge: ������������������ Date of : 86 Report #: [id number] weeks because she "ran out." Platelet count is normal at 356,000. Electrolytes normal, creatinine is 0.7, BUN of 13. Liver function studies are normal. Serum albumin normal at 3.8. The nurse reported to me that she did well during the night, but did vomit up clots this morning. The patient denies use of aspirin or nonsteroidal products. PAST MEDICAL HISTORY: She has had problems with recurrent ulcer disease and abdominal pain. She does have ewr-tffsyie-befgcsaex diabetes mellitus. She suffered some PTSD and depression. She has had an appendectomy. 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 She does have a seizure disorder, last seizure about 3 months ago. She has been on Keppra. She has an appointment to see a neurologist at [place] in the very near future. She has had pancreatitis in the past and was told it was related to medications. She had C. diff in the past. She did have a PEG tube in the past, but not recently. ALLERGIES: IV CONTRAST, TORADOL AND PENICILLIN. USUAL HOME MEDICATIONS: Humulin regular insulin 30 mL a.c. and at bedtime, Keppra 250 mg twice daily, pantoprazole 40 mg daily, sucralfate 1 g, she usually takes 2 daily. FAMILY HISTORY: No family history of colon cancer or ulcer disease or inflammatory disease of colon. SOCIAL HISTORY: She is single. No children. She is engaged to be . She does not smoke. She does not consume much alcohol. She is on disability. REVIEW OF SYSTEMS: GENERAL: No change in weight, fever or chills. CENTRAL NERVOUS SYSTEM: Seizure disorder, last 3 months ago. No recent weakness or numbness. ENT: Wears glasses. No change in vision, hearing or sores in the mouth. PULMONARY: No cough, pneumonia or tuberculosis. CARDIOVASCULAR: No chest pain, chest tightness or palpitation. GASTROINTESTINAL: As noted above with Crohn's disease and previous surgeries. GENITOURINARY: She has had urinary tract infections in the past. She does have pyuria on this admission and bladder thickening. GYNECOLOGIC: Normal periods. She denies excessive bleeding. No breast problems. MUSCULOSKELETAL: No arthralgias or myalgias. SKIN: Without rash. PSYCHIATRIC: PTSD. ENDOCRINE: She does have diabetes, requires insulin. No thyroid problems. HEMATOLOGIC: No bleeding, bruising or malignancies. [facility] [address] [place] [address] CONSULTATION Name: KENTRELL BREWER Room #: 354-P [facility] IN [facility]#: [id number] Admission: 12/03/18 ������������������ Attend Phys: Triston Arana MD Discharge: ������������������ Date of : 86 Report #: [id number] PHYSICAL EXAMINATION: GENERAL: The patient is a well-developed, well-nourished woman who is awake, alert and oriented, in no acute distress. Intermittently, she appears to be somewhat uncomfortable with her pain. VITAL SIGNS: Blood pressure 95/59, pulse 69. She has been afebrile this admission. HEENT: Anicteric. Pupils equal, round. Oropharynx clear. NECK: Supple. CHEST: Clear. HEART: Regular rate and rhythm, normal S1 and S2. ABDOMEN: Scars from previous surgery. Ileostomy noted. She reports stools were black yesterday; however, there is a small amount of thick liquidy green stool in her bag. Palpation of the abdomen reveals modest diffuse tenderness. There is no point tenderness. There is no rebound or rigidity. I do not appreciate organomegaly. RECTAL: Not done. EXTREMITIES: Without cyanosis, clubbing or edema. NEUROLOGICAL: Oriented to person, place and time. Moves all 4 extremities well. ASSESSMENT: 1. Hematemesis. 2. History of ulcer disease, status post previous partial gastrectomy. 3. Crohn's disease, status post proctocolectomy with end ileostomy. 4. Emy-lchcxgs-pojyhntak diabetes mellitus. 5. Seizure disorder, controlled with Keppra. 6. Posttraumatic stress disorder. 7. History of venous thrombosis related to lines. 8. Anemia, likely iron deficient. She is markedly microcytic. PLAN: 1. Clear liquid diet. 2. Pantoprazole. 3. Monitor hemoglobin. 4. Upper endoscopy, we will tentatively plan to do tomorrow morning. 5. Iron replacement. ��������������������������������������������� <ELECTRONICALLY SIGNED> ���������������������������������������� By: Jagdeep Bush MD ��������������������������������������������� 12/05/18 1159 [id number] Jagdeep Bush MD /nt
[2018-12-05 16:15] VITALS: BP 92/55
[2018-12-05 17:34] LABS: HEMATOCRIT 25.2 % (37.0-47.0); HEMOGLOBIN 7.7 gm/dL (12.0-15.0)
[2018-12-05 19:41] VITALS: BP 96/56
[2018-12-06 03:40] VITALS: BP 99/60
--- NOTE | 2018-12-06 03:57 | NUR ---
Medicated for pain with some relief. Slept fair during the night. No c/o nausea or vomiting. No bleeding noted. Up to bathroom with SBA and at times pt. gets up on her own with steady gait. Urine collection ongoing (24 hr) that will end today at 1610. Making progress towards care plan goals.
[2018-12-06 05:25] LABS: RDW 17.2 % (10.5-14.5); WBC 4.1 thou/uL (4.0-11.0)
[2018-12-06 05:26] LABS: HEMATOCRIT 21.5 % (37.0-47.0); HEMOGLOBIN 6.6 gm/dL (12.0-15.0); MCH 20.4 pg (26.0-34.0); MCHC 30.9 g/dL (28.0-37.0); RBC 3.25 mil/uL (4.20-5.00)
[2018-12-06 05:56] LABS: CREATININE 0.5 mg/dL (0.6-1.0); MAGNESIUM 1.9 mg/dL (1.8-2.4); POTASSIUM 3.2 mmol/L (3.5-5.1)
--- NOTE | 2018-12-06 06:36 | NUR ---
Hgb 6.6 and K 3.2 reported to PRESS SET UP and orders placed.
[2018-12-06 08:05] VITALS: BP 88/53
[2018-12-06 10:12] VITALS: BP 87/59; BP 99/56
--- NOTE | 2018-12-06 12:52 | NUR ---
ASSESSMENT: CM REVIEWED CHART AND MET WITH PATIENT AT THE BEDSIDE. PT IS ALERT AND ORIENTED X4. PT HAD EGD YESTERDAY AND CLOT WAS REMOVED FROM GASTRIC POUCH. PT HEMOGLOBIN IS LOW AND WILL CONTINUE TO BE MONITORED. PT REPORTS SHE LIVES IN A HOUSE WITH HER MOTHER. PT REPORTS BEING FULLY INDEPENDENT WITH ADLS AND AMBULATION. PT REPORTS SHE HAD HH IN THE PAST AND HAD BEEN TO A SNF IN [place] ABOUT 2 YEARS AGO. CM DISCUSSED ROLE, PATIENT DOES NOT ANTICIPATE HAVING ANY NEEDS FROM CM PRIOR TO DISCHARGE. CM WILL CONTINUE TO FOLLOW TO ASSIST NEEDED.
[2018-12-06 16:07] VITALS: BP 87/59
[2018-12-06 16:53] VITALS: BP 92/54
[2018-12-06 19:44] VITALS: BP 108/62
[2018-12-06 22:06] LABS: URINE CREATININE 34.2 mg/dL (Not Estab.)
--- NOTE | 2018-12-07 03:28 | NUR ---
Pt. stated she slept intermittently during the night. Pain med given for abdominal pain with some relief. No c/o nausea or vomiting and tolerating diet well. No bleeding from ileostomy. Bed alarm on and calls appropriately for assistance. Making progress towards care plan goals.
[2018-12-07 04:40] VITALS: BP 111/71
[2018-12-07 05:20] LABS: HEMATOCRIT 28.2 % (37.0-47.0); MCHC 31.2 g/dL (28.0-37.0); MCV 70.5 fL (80.0-100.0); RBC 4.01 mil/uL (4.20-5.00); RDW 21.3 % (10.5-14.5); WBC 8.2 thou/uL (4.0-11.0)
[2018-12-07 05:33] LABS: CALCIUM 8.5 mg/dL (8.5-10.1); CREATININE 0.4 mg/dL (0.6-1.0); MAGNESIUM 1.9 mg/dL (1.8-2.4); POTASSIUM 4.1 mmol/L (3.5-5.1)
[2018-12-07 05:37] LABS: HEMOGLOBIN 8.8 gm/dL (12.0-15.0)
[2018-12-07 07:27] VITALS: BP 100/65
--- NOTE | 2018-12-07 13:34 | NUR ---
ON-GOING ASSESSMENT: PT IS SLOLY PROGRESSING TOWARDS GOALS BUT IS STILL IN ALOT OF PAIN. PT IS NOT CLINICALLY STABLE FOR DISCHARGE TODAY. CM WILL CONTINUE TO FOLLOW TO ASSIST NEEDED.
[2018-12-07 15:34] VITALS: BP 104/57
--- NOTE | 2018-12-07 16:03 | NUR ---
ASSUMED PATIENT CARE AT 0715. A&OX4. COMPLAINTS OF ABDOMINAL PAIN. MORPHINE GIVEN FOR PAIN. PATIENT ALSO STATING THAT THEY ARE ANXIOUS. UP ADLIB. WAITING TO SEE IF HGB IS STABLE TOMORROW. POSSIBLE DC TOMORROW. PROGRESSING TOWARDS GOALS.
[2018-12-07 20:05] VITALS: BP 91/58
[2018-12-08 04:00] VITALS: BP 87/52
--- NOTE | 2018-12-08 04:18 | NUR ---
PATIENT IS PROGRESSING SLOWLY IN HER CARE PLAN. VITAL SIGNS STABLE WITH PATIENT HAVING NO COMPLAINTS OF NAUSEA. PATIENT DID COMPLAIN OF PAIN FREQUENTLY IN ABDOMEN WHICH WAS TREATED EFFECTIVELY WITH MEDICATIONS. FULLY ORIENTED, PATIENT DID DISPLAY SOME MILD ANXIETY EARLY IN SHIFT. SHE WAS ABLE TO CALL APPROPRIATELY FOR NEEDS. UP AD FELIPA THROUGHOUT SHIFT, PATIENT IS ABLE TO AMBULATE FREELY AROUND THE UNIT INCIDENT FREE AND APPEARS STRONG AND STEADY WHEN WALKING. POSSIBLE DISCHARGE TODAY. CONTINUE PLAN OF CARE.
[2018-12-08 05:40] LABS: HEMATOCRIT 30.9 % (37.0-47.0); HEMOGLOBIN 9.5 gm/dL (12.0-15.0)
[2018-12-08 07:27] VITALS: BP 114/58
--- NOTE | 2018-12-08 13:53 | NUR ---
ASSUMED PATIENT CARE AT 0715. A&OX4. COMPLAINTS OF ABDOMINAL PAIN. PATIENT STATED THEY FELT LIKE THEY HAD AN AURA AND THAT THEY FELT LIKE THEY MIGHT HAVE A SEIZURE IN THE MORNING. KEPPRA LEVEL PENDING AND ATIVAN GIVEN. PATIENT STILL NEEDING MORPHINE Q4. SLOWLY PROGRESSING TOWARDS GOALS.
[2018-12-08 15:32] VITALS: BP 96/55
[2018-12-08 19:30] VITALS: BP 88/48
[2018-12-09 04:50] VITALS: BP 95/44
--- NOTE | 2018-12-09 06:23 | NUR ---
PATIENT IS SLOWLY PROGRESSING IN HER CARE PLAN. VITAL SIGNS STABLE WITH PATIENT HAVING NO COMPLAINTS OF NAUSEA. PATIENT DID COMPLAIN FREQUENTLY OF PAIN WHICH NURSE ATTEMPTED TO CONTROL WITH MEDICATION AND NON PHARMACOLOGICAL INTERVENTION. ORIENTED TIMES FOUR, PATIENT IS ABLE TO CALL APPROPRIATELY FOR NEEDS. ANXIETY NOTED. NO EVIDENCE OF BLEEDING IN ILEOSTOMY. PATIENT MAY DISCHARGE TODAY. CONTINUE PLAN OF CARE.
[2018-12-09 07:55] VITALS: BP 107/57
[2018-12-09 08:58] LABS: HEMATOCRIT 31.3 % (37.0-47.0); HEMOGLOBIN 9.6 gm/dL (12.0-15.0); MCH 22.2 pg (26.0-34.0); MCHC 30.5 g/dL (28.0-37.0); MCV 72.8 fL (80.0-100.0); RBC 4.3 mil/uL (4.20-5.00); RDW 21.6 % (10.5-14.5); WBC 4.8 thou/uL (4.0-11.0)
[2018-12-09 09:11] LABS: CALCIUM 8.8 mg/dL (8.5-10.1); CREATININE 0.4 mg/dL (0.6-1.0); MAGNESIUM 2.1 mg/dL (1.8-2.4)
--- NOTE | 2018-12-09 15:24 | PATH ---
[facility] [address] [place] [address] PATHOLOGY RPT PROCEDURE Name: KENTRELL URBAN Room #: 354-P ADM IN M.R.#: [id number] ������������������ Admission: 12/03/18 ������������������ Date of : 86 Discharge: Report #: [id number] Path Case #: [id number] [facility] Accession Number: [id number] . 01 Material submitted: . BX GASTRIC MUCOSA R/O H. PYLORI . 01 Clinical history: . GI bleed, hematemesis . 02 Diagnosis: Gastric mucosa, R/O H. pylori, endoscopic biopsy: - Mild chronic inflammation. - Negative for intestinal metaplasia or atrophy. - Negative for Helicobacter pylori (properly controlled immunohistochemical stain performed). . (IUV:chucho; 12/06/2018) QMS/12/06/2018 . 02 Electronically signed: . Marilu Roberts MD, Pathologist NPI- [id number] . 01 Gross description: . Received in formalin labeled "Kentrell Urabn, BX gastric mucosa, rule out H. pylori," are 2 segments of peraza soft tissue measuring 1.1 x 0.2 x 0.2 cm in aggregate dimensions and ranging from 0.4 to 0.6 cm in maximum dimension. The specimen is submitted entirely in cassette A1. (TSD; 12/05/2018) TOB/TOB . 02 Pathologist provided ICD-10: K29.50 . 02 CPT . 688996, [id number] Specimen Comment: Report sent to / DR PETERS Performed at: [address], [place], [place] [id number] MD Hao Escaelra MD Phone: [phone] Performed at: [address] [id number] MD Marilu Roberts MD Phone: [phone]
--- NOTE | 2018-12-09 15:32 | NUR ---
ON-GOING ASSESSMENT: PT STILL EXPERIENCING SOME PAIN. PLAN IS TO SWITCH PATIENT TO ORAL MEDICATIONS. PATIENT DOES NOT ANTICIPATE HAVING ANY NEEDS FROM CM AT DISCHARGE. PT LIVES AT HOME WITH HER MOTHER.
[2018-12-09 16:33] VITALS: BP 106/68
--- NOTE | 2018-12-09 18:45 | NUR ---
ASSUMED PATIENT CARE AT 714. PATIENT STILL NEEDING PAIN MEDS Q4 HOURS. NEURO CONSULTED, SEE NOTE. PATIENT HAD BRIGHT RED HEMATEMESIS TODAY. H&H SCHEDULED AT 2029. GI NOTIFIED.
[2018-12-09 18:55] VITALS: BP 91/54
[2018-12-09 20:45] LABS: HEMATOCRIT 31.4 % (37.0-47.0)
[2018-12-10 03:07] VITALS: BP 101/69
--- NOTE | 2018-12-10 04:38 | NUR ---
PATIENT IS PROGRESSING SLOWLY IN HER CARE PLAN. VITAL SIGNS STABLE. PATIENT HAS COMPLAINED OF PAIN AND NAUSEA MULTIPLE TIMES DURING SHIFT AND WAS TREATED WITH MEDICATIONS AND NON PHARMACOLOGICAL INTERVENTIONS. NO EPISODES OF EMESIS. FULLY ORIENTED, PATIENT IS ABLE TO CALL APPROPRIATELY FOR REQUESTS AND PARTICIPATE IN CARE PLAN. PATIENT LESS ANXIOUS THAN PREVIOUS SHIFT. PATIENTS ILEOSTOMY FREE FROM BLOOD. UP AD FELIPA THROUGHOUT SHIFT INCIDENT FREE. DISCHARGE POSSIBLE TODAY. CONTINUE PLAN OF CARE.
[2018-12-10 06:21] LABS: HEMATOCRIT 31.4 % (37.0-47.0); HEMOGLOBIN 9.6 gm/dL (12.0-15.0); MCH 22.7 pg (26.0-34.0); MCHC 30.6 g/dL (28.0-37.0); MCV 74.3 fL (80.0-100.0); RBC 4.23 mil/uL (4.20-5.00); RDW 22.7 % (10.5-14.5); WBC 5.1 thou/uL (4.0-11.0)
[2018-12-10 06:35] LABS: CALCIUM 8.5 mg/dL (8.5-10.1); CREATININE 0.6 mg/dL (0.6-1.0); POTASSIUM 3.6 mmol/L (3.5-5.1)
[2018-12-10 07:24] VITALS: BP 104/79
--- NOTE | 2018-12-10 13:44 | EEG ---
[facility] [place] [address] ELECTROENCEPHALOGRAM Name: KENTRELL BREWER Room #: 354-P ADM IN M.R.#: [id number] ������������������ Admission: 12/03/18 ������������������ Attend Phys: Triston Arana MD Discharge: ������������������ Date of : 88 Report #: [id number] ����������������������������������������������������������������� [id number] THIS REPORT FOR: //name// CC: [facility] physician/PCP Triston Arana The patient is a 28-year-old female who presents with a history of seizure disorder. She is on Keppra 250 mg b.i.d. DESCRIPTION: The awake record consists of symmetric moderate amplitude 8-9 cycles per second posterior dominant rhythm, which attenuates with eye opening. Stage 1 sleep was characterized by attenuation of the background record. No focal abnormalities or epileptiform discharges were noted. IMPRESSION: This is a normal adult awake stage 1 sleep record. No focal abnormalities or epileptiform discharges were noted. ���������������������������������������� <ELECTRONICALLY SIGNED> ���������������������������������������� By: Teena Springer DO ��������������������������������������������� 12/10/18 1344 1104 1132 Teena Springer DO /nt
[2018-12-10 15:00] VITALS: BP 99/55
--- NOTE | 2018-12-10 19:34 | NUR ---
PATIENT ALERT AND ORIENTED AND PLEASANT. PATIENT COMPLAINS OF ABDOMENAL PAIN AND CURRENTLY RECEIVING BOTH ORAL AND IV PAIN MEDS. PATIENT MANAGES HER COLOSTOMY AND ONLY NEEDS ASSISTANCE WITH IV POLE TO BATHROOM. NO EMEMSIS OR BLOOD IN ILLEOSTOMY ON DAY SHIFT.
[2018-12-10 22:03] VITALS: BP 98/48
[2018-12-11 04:14] VITALS: BP 108/63
--- NOTE | 2018-12-11 04:42 | NUR ---
PT AMBULATING TO BATHROOM INDEPENDENTLY AND IS TOLERATING WELL. FENTANYL AND MORPHINE PROVIDING PAIN RELIEF. DENIES NAUSEA. RESTING COMFORTABLY. NO NEEDS VOICED. CALL LIGHT WITHIN REACH. WILL CONTINUE TO PROVIDE FREQUENT OBSERVATION.
[2018-12-11 08:27] VITALS: BP 105/64
[2018-12-11] MEDS ORDERED: KEPPRA 500 MG500 M1 PO (10:50)
[2018-12-11] MEDS ORDERED: REGLAN 10 MG TA10 MG PO (10:51)
[2018-12-11 10:54] VITALS: BP 105/64
--- NOTE | 2018-12-11 12:27 | NUR ---
assumed patient care at 0700. a/0 x4. sti;; c/o abd pain. no n/v. dc to home now.
--- NOTE | 2018-12-12 12:52 | HC ---
[facility] [place] [address] CONSULTATION Name: KENTRELL BREWER Room #: 354-P [facility] IN M.R.#: [id number] Admission: 12/03/18 ������������������ Attend Phys: Triston Arana MD Discharge: 12/11/18 ������������������ Date of : 88 Report #: [id number] THIS REPORT FOR: //name// CC: [facility] physician/PCP Triston Arana MD DATE OF SERVICE: 12/03/2018 NEUROLOGY CONSULT HISTORY OF PRESENT ILLNESS: The patient is a -icvf-jky female who states she began having seizures as a child. Sometimes she knew they were coming on because she would feel shaky. She would then fall back and have a seizure, although she has no recollection of the actual event itself. She states that she was confused afterwards. There was no one to speak to about these events other than the patient. Yesterday the patient states that she felt as though one might come on but nothing happened. She also states that they seem to come on whenever she is under stress. The patient has moved here from [place] and had seen a neurologist there, however she did not appear to be on medication because the levetiracetam was begun by the Neurology Department at [facility]. PAST MEDICAL HISTORY: Crohn disease, type 1 diabetes, posttraumatic stress disorder, depression, OCD, seizure disorder. PAST SURGICAL HISTORY: Gastric bypass, ileostomy, rectum removed, two-thirds of stomach removed. MEDICATIONS: The patient is currently on Keppra 250 mg b.i.d., ferrous sulfate 325 mg t.i.d., sliding scale insulin, p.r.n. lorazepam, p.r.n. morphine, p.r.n. ondansetron, Protonix 40 mg b.i.d., p.r.n. Compazine, scopolamine patch every 3 days, Carafate 1 gram 4 times a day. ALLERGIES: CT CONTRAST, PENICILLIN, KETOROLAC, IOHEXOL. PHYSICAL EXAMINATION: VITAL SIGNS: Temperature 36.7, pulse rate 84, respiratory rate 16, blood pressure 106/68, bedside pulse oximetry 99% on room air. NEUROLOGIC: Cranial nerves 2-12 are grossly intact. Motor exam demonstrates symmetrical strength in all 4 extremities with tone and bulk normal. There is no evidence of dysmetria. Gait was not tested. LABORATORY AND DIAGNOSTIC DATA: Lab work: White blood cell count 4.8, hemoglobin 9.6, hematocrit 31.3, MCV 72.8, platelet count 317,000. Urinalysis: Nitrite positive. Leukocyte esterase trace. Chemistry: Sodium 140, potassium [address] [address] CONSULTATION Name: KENTRELL BREWER Room #: 354-P [facility] IN M.R.#: [id number] Admission: 12/03/18 ������������������ Attend Phys: Triston Arana MD Discharge: 12/11/18 ������������������ Date of : 88 Report #: [id number] 4, chloride 106, carbon dioxide 29, BUN 5, creatinine 0.6, GFR 187, glucose 92, calcium 8.8, magnesium 2.1. Liver functions unremarkable. Lipase 151. B12 426. Folate 18.9. IMPRESSION: This patient with a history of seizure disorder and is on Keppra. I have increased the dose to 500 mg twice a day. The electroencephalogram is normal. This is a patient that might benefit from an outpatient ambulatory EEG. I will come by in the morning to reevaluate her. I thank you for your kind referral. ��������������������������������������������� <ELECTRONICALLY SIGNED> ���������������������������������������� By: Teena Springer DO ��������������������������������������������� 12/12/18 1252 1828 1440 Teena Springer DO /nt
== END 2018-12-11 12:28 | disposition home or self-care (01) | DRG 378 ==
LOC: ER 13:48 → 3W 16:38 → EROBS 16:38 → ER 18:44 → 3W 18:44
PROVIDERS: Internal Medicine Gastroenterology; Nurse Practitioner; Physician Assistant; Specialist; ADMIT Internal Medicine
PROC: 0DB68ZX Excision of Stomach, Via Natural or Artificial Opening Endoscopic, Diagnostic (ICD-10-PCS; principal; 2018-12-05)
PROC: 30233N1 Transfusion of Nonautologous Red Blood Cells into Peripheral Vein, Percutaneous Approach (ICD-10-PCS; 2018-12-06)
DX: K92.2 Gastrointestinal hemorrhage, unspecified (principal); N39.0 Urinary tract infection, site not specified; K50.90 Crohn's disease, unspecified, without complications; D62 Acute posthemorrhagic anemia; E10.9 Type 1 diabetes mellitus without complications; F43.10 Post-traumatic stress disorder, unspecified; F32.9 Major depressive disorder, single episode, unspecified; F42.9 Obsessive-compulsive disorder, unspecified; B96.4 Proteus (mirabilis) (morganii) as the cause of diseases classified elsewhere; G40.909 Epilepsy, unspecified, not intractable, without status epilepticus; Z86.718 Personal history of other venous thrombosis and embolism; Z98.84 Bariatric surgery status; Z87.11 Personal history of peptic ulcer disease; Z93.2 Ileostomy status; Z90.49 Acquired absence of other specified parts of digestive tract; Z79.4 Long term (current) use of insulin; Z79.899 Other long term (current) drug therapy; Z88.0 Allergy status to penicillin; Z88.8 Allergy status to other drugs, medicaments and biological substances; Z83.3 Family history of diabetes mellitus
CPT/HCPCS: 10879; 62110; 62900

== ENCOUNTER 2019-01-17 18:23 | Inpatient (IN) | payer OTHER ==
[~2019-01-17] VITALS: Ht 152.4 cm; Wt 56.7 kg
[~2019-01-17 18:23] MED LIST changes: +KEPPRA 500 MG500 M1 PO; +REGLAN 10 MG TA10 MG PO
[2019-01-17 18:24] VITALS: BP 126/78
[2019-01-17 19:04] LABS: HEMATOCRIT 36.2 % (37.0-47.0); HEMOGLOBIN 11.9 gm/dL (12.0-15.0); MCH 26.3 pg (26.0-34.0); MCHC 32.9 g/dL (28.0-37.0); MCV 79.8 fL (80.0-100.0); PLATELET COUNT 300 thou/uL (150-400); RBC 4.53 mil/uL (4.20-5.00); RDW 29.9 % (10.5-14.5); WBC 7.8 thou/uL (4.0-11.0)
[2019-01-17 19:16] LABS: CALCIUM 8.9 mg/dL (8.5-10.1); CREATININE 0.7 mg/dL (0.6-1.0); POTASSIUM 3.6 mmol/L (3.5-5.1)
[2019-01-17 19:19] LABS: ALBUMIN 3.7 g/dL (3.4-5.0); TOTAL BILIRUBIN 0.6 mg/dL (<0.1-1.0); TOTAL PROTEIN 7.2 g/dL (6.4-8.2)
[2019-01-17 19:38] LABS: ABSOLUTE NEUTROPHILS 5.4 thou/uL (1.4-8.2); METAMYELOCYTES 1 %
[2019-01-17 19:39] LABS: ANISOCYTOSIS 2+; HYPOCHROMASIA SLIGHT; MICROCYTES SLIGHT
[2019-01-17 20:45] LABS: URINE BILIRUBIN NEGATIVE (Negative); URINE BLOOD NEGATIVE (Negative); URINE CLARITY CLEAR; URINE COLOR YELLOW; URINE GLUCOSE-RANDOM* NEGATIVE (Negative); URINE KETONES NEGATIVE (Negative); URINE LEUKOCYTES-REFLEX NEGATIVE (Negative); URINE NITRITE-REFLEX NEGATIVE (Negative); URINE PROTEIN (DIPSTICK) NEGATIVE (Negative); URINE UROBILINOGEN 0.2 E.U./dl (0.2-1.0)
--- NOTE | 2019-01-17 21:58 | NUR ---
1ST ATTEMPT TO CALL REPORT
[2019-01-17 22:22] VITALS: BP 111/61
--- NOTE | 2019-01-17 22:30 | NUR ---
Pt. arrived to the unit from the emergency room accompanied by staff. She is alert and oriented. Admission assessment and history is completed. Bed alarm is on.
[2019-01-17 22:41] VITALS: BP 121/74
[2019-01-18 02:52] VITALS: BP 107/61
--- NOTE | 2019-01-18 06:00 | NUR ---
Pt. rested quietly at intervals during the night when checked on during frequent rounds. She does c/o abdominal pain and pain meds given (see emar) with some relief noted. No noted active bleeding during the night. No c/o nausea.
[2019-01-18 06:03] LABS: HEMATOCRIT 34.7 % (37.0-47.0); HEMOGLOBIN 11.2 gm/dL (12.0-15.0); MCH 26.2 pg (26.0-34.0); MCHC 32.2 g/dL (28.0-37.0); MCV 81.3 fL (80.0-100.0); RBC 4.26 mil/uL (4.20-5.00); RDW 30.1 % (10.5-14.5); WBC 5.7 thou/uL (4.0-11.0)
[2019-01-18 06:13] LABS: CALCIUM 8.1 mg/dL (8.5-10.1); CREATININE 0.6 mg/dL (0.6-1.0); POTASSIUM 3.4 mmol/L (3.5-5.1)
[2019-01-18 07:27] VITALS: BP 107/58
[2019-01-18 18:02] VITALS: BP 99/59
[2019-01-18 18:45] LABS: HEMATOCRIT 34.2 % (37.0-47.0); HEMOGLOBIN 11.4 gm/dL (12.0-15.0)
--- NOTE | 2019-01-18 19:29 | NUR ---
PT A&O4, VSS, C/O OF PAIN IN ABD AND MANAGED WITH MORPHINE. PT HAD EGD DONE TODAY. NO N/V/D. ABD SOFT TO TOUCH, BOWEL SOUNDS ACTIVE, PT STATES TENDER TO TOUCH. WILL CONTINUE TO MONITOR.
[2019-01-18 21:11] VITALS: BP 103/70
[2019-01-19] VITALS (9 sets, daily range): BP systolic 81–109; BP diastolic 46–63
--- NOTE | 2019-01-19 04:23 | NUR ---
ASSUMED CARE AROUND 2100. PT WAS IN NUC MED BLEEDING SCAN. AXOX4. PAIN MANAGED PER MD ORDER. ILEOSTOMY INTACT AND SELF CARE PROVIDED BUY THE PATIENT. BP LOW THIS AM AND ADRRESSED TO BLADIMIR AMEZCUA. NNO AT THIS TIME. HR STABLE AND PT DENIES ANY CHEST PAIN, SOB, N/V/C AT THIS TIME. WILL CONT TO MONITOR FOR ANY CHANGES IN CONDITION.
[2019-01-19 05:14] LABS: HEMOGLOBIN 11.5 gm/dL (12.0-15.0); MCH 27.4 pg (26.0-34.0); MCV 80.6 fL (80.0-100.0); RBC 4.21 mil/uL (4.20-5.00); RDW 29.9 % (10.5-14.5); WBC 4.7 thou/uL (4.0-11.0)
[2019-01-19 05:25] LABS: CALCIUM 8.4 mg/dL (8.5-10.1); CREATININE 0.5 mg/dL (0.6-1.0); POTASSIUM 4.1 mmol/L (3.5-5.1)
--- NOTE | 2019-01-19 12:14 | P ---
[facility] [place] [address] PROCEDURE REPORT Name: KENTRELL BREWER Room #: 460-P ADM IN M.R.#: [id number] Admission: 01/17/19 ������������������ Attend Phys: Blaine Tariq MD Discharge: ������������������ Date of : 88 Report #: [id number] THIS REPORT FOR: //name// CC: [facility] physician/PCP Blaine Tariq MD DATE OF SERVICE: 01/18/2019 LOCATION: She is in room 460. She is a patient of Dr. Blaine Tariq. INDICATION FOR PROCEDURE: This patient appears to have another acute upper GI bleed with hematemesis. Hemoglobin is stable, however. EGD is being performed because she has active bleeding going on, to see if we can localize the source and treat it. Informed consent for this procedure was obtained prior to the administration of any medication. The risks of the procedure, which include bleeding, perforation, infection, complications of sedation and the possibility I could miss something have been explained to the patient. She has indicated her consent by signing. Anesthesia kindly provided deep sedation for this procedure. The Olympus upper videoscope was introduced through the upper esophageal sphincter and advanced under direct visualization through the esophagus into the gastric remnant, which is quite small and down both limbs of what appears to be either a William-en-Y anastomosis or a Billroth II anastomosis. Findings are noted on withdrawal of the scope. It should be noted that there is red blood in both the efferent and afferent loops of jejunum anastomosed to the stomach. There is blood in the gastric remnant with some clots. This is all washed free and nothing is actively bleeding in the stomach. It seems most likely that the blood would be coming from the afferent loop as it seems unlikely that the blood would travel backwards against motility in this loop. I examined both loops as far as I could advance the scope and I could not identify a source of blood. Blood seemed to be coming from further up in each loop than I could reach. But, I suspect that the afferent loop is most likely the source. The scope was then withdrawn. The gastric anastomosis appears intact. All the clots were removed from the stomach and the anastomotic area and I could not appreciate any reaccumulating problems of blood or clots. Retroflex view did not reveal any other abnormalities. The gastric remnant is very small. The scope was withdrawn into the esophagus. The Z-line is appropriately located at the top of the gastric folds and appears normal. The esophageal mucosa appeared normal throughout its entirety. The scope was withdrawn. The patient went to the [address] [address] PROCEDURE REPORT Name: KENTRELL BREWER Room #: 460-P [facility] IN .R.#: [id number] Admission: 01/17/19 ������������������ Attend Phys: Blaine Tariq MD Discharge: ������������������ Date of : 88 Report #: [id number] recovery area in stable condition. She tolerated the procedure well. IMPRESSION: 1. Normal esophagus. 2. Tiny gastric remnant containing blood, but the source was not clear. 3. Blood in both the afferent and efferent gastrojejunostomy limbs indicating that most likely the afferent limb is the source of the bleeding. My recommendations were to get a nuclear medicine GI bleeding scan now and continue her current care. We will monitor H and H closely. We will start her on a clear liquid diet and a Carafate slurry 1 gram p.o. before meals and at bedtime. Thank you very much once again for allowing me to participate in her care. ��������������������������������������������� <ELECTRONICALLY SIGNED> ���������������������������������������� By: Lexie Israel DO ��������������������������������������������� 01/19/19 1214 1646 0711 Lexie Israel DO /nt
--- NOTE | 2019-01-19 16:58 | NUR ---
NO BLEEDING NOTED TODAY. UP AMBULATING IN HALLS AND TOLERATING WELL. DOES HER OWN OSTOMY CARE. TOLERATING REGULAR DIET. BLOOD SUGARS WITHIN NORMAL LIMITS. PLAN IS TO GO HOME TOMORROW.
[2019-01-20 02:55] VITALS: BP 108/58
--- NOTE | 2019-01-20 04:32 | NUR ---
Pt. rested quietly at intervals during the night when checked on during frequent rounds. Pain meds given for abdominal pain (see emar) with some relief noted.
[2019-01-20 06:00] LABS: CALCIUM 8.7 mg/dL (8.5-10.1); CREATININE 0.6 mg/dL (0.6-1.0); POTASSIUM 3.2 mmol/L (3.5-5.1)
[2019-01-20 06:01] LABS: HEMATOCRIT 36.1 % (37.0-47.0); HEMOGLOBIN 11.7 gm/dL (12.0-15.0); MCH 26.4 pg (26.0-34.0); MCHC 32.4 g/dL (28.0-37.0); MCV 81.4 fL (80.0-100.0); RBC 4.44 mil/uL (4.20-5.00)
[2019-01-20 08:05] VITALS: BP 106/60
[2019-01-20 14:45] VITALS: BP 101/59; BP 99/53
--- NOTE | 2019-01-20 15:48 | NUR ---
ASSUMED CARE 0700, ABLE TO MAKE NEEDS KNON, PAIN MANAGAED WITH MEDICATION. VOMITED BLOOD THIS MORNING, GI NOTIFIED WITH ORDER FOR A GI BLEEDING SCAN COMPLETED TODAY. CURRENTLY PT BACK FROM PROCEDURE, VSS, TOLERATING CLEAR LIQUID DIET. SHE IS UP AB FELIPA TOLERATED. CALLS APPROAPRIATLETY.
[2019-01-20 20:01] VITALS: BP 93/54
[2019-01-21 03:15] VITALS: BP 90/45
--- NOTE | 2019-01-21 04:45 | NUR ---
Pt. rested quietly at intervals during the night when checked on during frequent rounds. She c/o abdominal pain and has been given ivp morphine (see emar) with some relief noted. No bloody emesis.
[2019-01-21 05:11] LABS: HEMATOCRIT 32.4 % (37.0-47.0); HEMOGLOBIN 10.7 gm/dL (12.0-15.0); MCH 26.5 pg (26.0-34.0); MCV 80.4 fL (80.0-100.0); RDW 29.1 % (10.5-14.5); WBC 4.3 thou/uL (4.0-11.0)
[2019-01-21 05:20] LABS: CALCIUM 8.2 mg/dL (8.5-10.1); CREATININE 0.5 mg/dL (0.6-1.0); POTASSIUM 3.3 mmol/L (3.5-5.1)
[2019-01-21 06:52] LABS: RBC 4.02 mil/uL (4.20-5.00)
[2019-01-21 08:00] VITALS: BP 96/60
--- NOTE | 2019-01-21 14:57 | NUR ---
ASSUMED CARE 0700. A/OX4, PAIN MANAGED WITH MEDICATIONS. TOLERATING ADVANCE DIET. DENIES VOMITING. UP AB FELIPA. CONITUE TO MONOTOR.
[2019-01-21 16:09] VITALS: BP 98/53
[2019-01-21 19:23] VITALS: BP 104/54
--- NOTE | 2019-01-22 03:18 | NUR ---
PATIENT AOX4 MAKES NEEDS KNOWN. PATIENT IS UP AT FELIPA. PAIN CONTROLLED THIS SHIFT. PATIENT C/O ITCHING, LICENSING ANALYST CALLED NEW ORDER OF BENADRY. PATIENT HAS ILESTOMY BAG, STOMA IS PINK NO S/S OF INFECTION. NO BLEEDING NOTED THIS SHIFT. PATIENT IN BED ASLEEP AT THIS TIME BREATHING REGULAR AND UNLABOURED.
[2019-01-22 03:50] VITALS: BP 92/58
[2019-01-22 08:00] VITALS: BP 98/57
[2019-01-22] MEDS ORDERED: PROTONIX40 M1 PO (11:53)
[2019-01-22 14:15] VITALS: BP 100/63
--- NOTE | 2019-01-22 18:41 | NUR ---
Assumed pt care this am, hematemesis was noted in the toilet at round 150cc. Blood was bright red, informed Dr. Tariq and Dr. Vo. stat bleeding scan ordered, currently on going. Pt demands pain medication to be on the dot and claims to have pain raining from 7 to 10. Ileostomy intact and draining brown liquid stools. No nausea or vomiting noted at this time of day. poc followed.
[2019-01-22 19:27] VITALS: BP 99/63
[2019-01-23 03:55] VITALS: BP 107/51
--- NOTE | 2019-01-23 05:06 | NUR ---
ASSUMED CARE 1900. VSS. ASSESSMENT CHARTED. PT C/O GENERAL STOMACH PAIN CONTROLED WITH PRN MORPHINE PER EMAR. PT ITCHY FROM STICKERS , RESOURCE ROOM TEACHER NOTIFIED PRN BENADRYL GIVEN PER EMAR. NO BM OR EMESIS THIS SHIFT, NO SIGNS OF BLEEDING. PLAN FOR LABS THIS AM. WILL CONTINUE TO MONITOR AND WITH POC.
[2019-01-23 06:16] LABS: HEMATOCRIT 32.7 % (37.0-47.0); HEMOGLOBIN 10.7 gm/dL (12.0-15.0); MCH 26.4 pg (26.0-34.0); MCHC 32.6 g/dL (28.0-37.0); MCV 81.1 fL (80.0-100.0); RBC 4.03 mil/uL (4.20-5.00); RDW 28.5 % (10.5-14.5); WBC 5.3 thou/uL (4.0-11.0)
[2019-01-23 06:27] LABS: CALCIUM 8.2 mg/dL (8.5-10.1); CREATININE 0.6 mg/dL (0.6-1.0); POTASSIUM 3.7 mmol/L (3.5-5.1)
[2019-01-23 08:00] VITALS: BP 115/65
[2019-01-23 13:38] VITALS: BP 115/65
[2019-01-23 14:50] VITALS: BP 108/57
--- NOTE | 2019-01-23 14:50 | NUR ---
Assumed pt care this am, no bloody vomitus was noted. Pain and nausea managed by medication. diet is well tolerated. No issues or concerns verbalized by the pt. Ileostoomy site intact and draining light brown liq stools. DC intructions and scripts given, IV removed. Awaiting pt's mother for lemon picker.
== END 2019-01-23 17:01 | disposition home or self-care (01) | DRG 379 ==
LOC: ER 18:23 → EROBS 20:54 → 4W 20:54 → ENTRNSPT 01-23 15:32 → EDTRNSPTSTS 01-23 15:34 → 4W 01-23 17:01
PROVIDERS: Internal Medicine Gastroenterology; Nurse Practitioner Family; Physician Assistant; ADMIT Hospitalist
PROC: 0DJ08ZZ Inspection of Upper Intestinal Tract, Via Natural or Artificial Opening Endoscopic (ICD-10-PCS; principal; 2019-01-18)
PROC: 0W3P8ZZ Control Bleeding in Gastrointestinal Tract, Via Natural or Artificial Opening Endoscopic (ICD-10-PCS; 2019-01-20)
DX: K92.2 Gastrointestinal hemorrhage, unspecified (principal); E11.9 Type 2 diabetes mellitus without complications; F43.10 Post-traumatic stress disorder, unspecified; F32.9 Major depressive disorder, single episode, unspecified; F42.9 Obsessive-compulsive disorder, unspecified; G40.909 Epilepsy, unspecified, not intractable, without status epilepticus; D50.9 Iron deficiency anemia, unspecified; K80.20 Calculus of gallbladder without cholecystitis without obstruction; Z98.84 Bariatric surgery status; Z90.49 Acquired absence of other specified parts of digestive tract; Z86.718 Personal history of other venous thrombosis and embolism; Z87.11 Personal history of peptic ulcer disease; Z93.1 Gastrostomy status; Z79.4 Long term (current) use of insulin; Z79.899 Other long term (current) drug therapy; Z88.0 Allergy status to penicillin; Z88.8 Allergy status to other drugs, medicaments and biological substances; Z91.041 Radiographic dye allergy status
CPT/HCPCS: 10045; 62110; 62900; 70005

== ENCOUNTER 2019-03-03 13:32 | Inpatient (IN) | payer OTHER ==
[~2019-03-03] VITALS: Ht 152.4 cm; Wt 50.8 kg
--- NOTE | ~2019-03-03 | HC ---
[facility] [place] [address] CONSULTATION Name: KENTRELL BREWER Room #: 201-P ADM IN M.R.#: [id number] Admission: 03/03/19 ������������������ Attend Phys: Jonnie Peter MD Discharge: ������������������ Date of : 88 Report #: [id number] THIS REPORT FOR: //name// CC: Jonnie MARTÍNEZ unknown DATE OF SERVICE: 03/05/2019 REASON FOR CONSULTATION: Hematemesis of unknown source. HISTORY OF PRESENT ILLNESS: The patient is a 28-year-old female who has an extensive abdominal history and hematemesis. 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 She has had a partial gastrectomy in 2014. She has had a William-en-Y gastric bypass and has had repeated hematemesis. She has had nuclear medicine scans done. No evidence of the site of bleeding has happened. I have been asked to evaluate whether she potentially has a spot of bleeding that is superior to her upper esophageal sphincter. She recently was admitted at [facility] and was discharged and then presented to [facility]. She is currently sedated and on Ativan. PAST MEDICAL HISTORY: Significant for fci-xdvbdsj-vxsmpgmbf diabetes, PTSD, depression, appendectomy, history of seizure disorder and pancreatitis. MEDICATIONS: Keppra, pantoprazole, iron, Zofran and Wayne. ALLERGIES: IV CONTRAST, TORADOL AND PENICILLIN. FAMILY HISTORY: Noncontributory. SOCIAL HISTORY: She is engaged to be and is moving to [place]. REVIEW OF SYSTEMS: Essentially negative at this time. PHYSICAL EXAMINATION: GENERAL: She is a well-developed female who is sedate, but cooperative. HEENT: Head is normocephalic. Pupils are equal, round and reactive. Nasal, no evidence of active rhinorrhea. No evidence of granulation, ulceration or prominent vascularity. Oral cavity, no granulation or ulcerations seen. Dentition is good. NECK: No palpable adenopathy. IMPRESSION: History of hematemesis, repetitive. No evidence of active bleeding at this time. [facility] [address] [place] [address] CONSULTATION Name: KENTRELL BREWER Room #: 201-P ADM IN M.R.#: [id number] Admission: 03/03/19 ������������������ Attend Phys: Jonnie Peter MD Discharge: ������������������ Date of : 88 Report #: [id number] PLAN: If she has an active bleed, we would like to see her rather abruptly and see if there is a potential site of bleeding from the upper airway. At this time, scope is not useful as she has not had any recent bleeding. There is no evidence of active bleeding at this time. ��������������������������������������������� ���������������������������������������� By: ��������������������������������������������� 1045 1210 Catalino Kennedy MD /nt
[2019-03-03 13:53] LABS: URINE BLOOD 3+ (Negative); URINE COLOR YELLOW; URINE GLUCOSE-RANDOM* NEGATIVE (Negative); URINE KETONES NEGATIVE (Negative); URINE LEUKOCYTES-REFLEX NEGATIVE (Negative); URINE NITRITE-REFLEX NEGATIVE (Negative); URINE PROTEIN (DIPSTICK) 1+ (Negative); URINE SPECIFIC GRAVITY 1.015 (1.005-1.035); URINE UROBILINOGEN 0.2 E.U./dl (0.2-1.0)
[2019-03-03 13:54] LABS: URINE CLARITY SL HAZY
[2019-03-03 13:55] VITALS: BP 130/80
[2019-03-03 13:55] LABS: ICTOTEST (BILI CONFIRMATORY) Negative (Negative); URINE BILIRUBIN NEGATIVE (Negative)
[2019-03-03 14:00] LABS: CASTS None Seen /LPF (None Seen); CRYSTALS None Seen /LPF (None Seen); MUCUS >6 Heavy strn/LPF (None Seen); SQUAMOUS >10 Many /LPF (0-3); URINE RBC 3-10 Few /HPF (0-2); URINE WBC-REFLEX 0-5 Rare /HPF (0-5)
[2019-03-03 14:58] LABS: ABSOLUTE NEUTROPHILS 7.4 thou/uL (1.4-8.2); BASOPHILS 0.6 % (0.0-2.0); HEMOGLOBIN 13.7 gm/dL (12.0-15.0); LYMPHOCYTES 10.4 % (24.0-44.0); MCH 30.2 pg (26.0-34.0); MCHC 33.5 g/dL (28.0-37.0); MCV 90.2 fL (80.0-100.0); MONOCYTES 6.1 % (1.0-8.0); PLATELET COUNT 221 thou/uL (150-400); POLYS 81.9 % (36.0-66.0); RBC 4.55 mil/uL (4.20-5.00); RDW 15.7 % (10.5-14.5); WBC 9.1 thou/uL (4.0-11.0)
[2019-03-03 15:05] LABS: CALCIUM 9.5 mg/dL (8.5-10.1); CREATININE 0.7 mg/dL (0.6-1.0); POTASSIUM 3.5 mmol/L (3.5-5.1)
[2019-03-03 15:11] LABS: ALBUMIN 3.7 g/dL (3.4-5.0); TOTAL BILIRUBIN 0.5 mg/dL (<0.1-1.0); TOTAL PROTEIN 7.5 g/dL (6.4-8.2)
[2019-03-03 15:23] LABS: APTT 27.9 Seconds (24.5-32.8); PROTIME 9.9 Seconds (9.3-11.4)
[2019-03-03 16:54] VITALS: BP 130/80
[2019-03-03 17:10] LABS: ANISOCYTOSIS 2+; POLYCHROMASIA OCCASIONAL
[2019-03-03 17:11] LABS: POIKILOCYTOSIS SLIGHT
[2019-03-03 18:32] VITALS: BP 100/76
[2019-03-04] VITALS (7 sets, daily range): BP systolic 93–156; BP diastolic 41–75
--- NOTE | 2019-03-04 02:40 | NUR ---
ASSUMED PT CARE AT 1900. PT WAS A NEW ADMIT FROM ER. VSS. PT A&0X4. COMPLAINING OF ABD PAIN. FENTANYL GIVEN, ADMISSION ASSESSMENTS DONE AND CONSENTS SIGNED. PT ALSO INFORMED OF RF INTERFERENCE POLICY. PT STATED THAT SHE WAS TOLD SHE WOULD BE HAVING AN EGD THIS AM AND SO SHE SHOULD BE NPO. NO ORDERS FOR EGD YET, PT HAS BEEN NPO SINCE MIDNIGHT. PT SHARED HER CONCERNS ABOUT HER RIGHT AC SWELLING. SHE STATED THAT SHE HAD NOTICED THE HARDNESS, REDNESS, HEAT AND SWELLING AFTER HER IV WAS TAKEN OUT FROM HER [facility]IOR [facility] AT [facility]. PT IS AFRAID IT IS A BLOOD CLOT WARM COMPRESS PLACED ON SITE, FOLLOWED BY A COLD COMPRESS. IV TEAM WAS CONSULTED SO THEY CAN ACCESS THE SITUATION. PT IS STABLE, SLEPT WELL ALL NIGHT. WILL CONTINUE TO MONITOR PER POC.
[2019-03-04 05:54] LABS: CALCIUM 8.3 mg/dL (8.5-10.1); CREATININE 0.6 mg/dL (0.6-1.0); MAGNESIUM 1.9 mg/dL (1.8-2.4); POTASSIUM 3.8 mmol/L (3.5-5.1)
--- NOTE | 2019-03-04 09:31 | NUR ---
VAT CONSULTED FOR ASSESSMENT OF PT'S RT ARM INFLAMMATION. THIS OCCURED AT [facility] WHEN SOMEONE ATTEMPTED AN IV START--PER PT. RT ARM AVOIDED YESTERDAY WHEN THIS PT WAS SEEN IN THE ER....PIV WAS STARTED IN THE LT FOREARM. RECOMMEND ABX AND HEAT APPLIED...AND CALL MD FOR OTHER INTERVENTIONS. RN ADVISED.
[2019-03-04 11:05] LABS: HEMATOCRIT 35.6 % (37.0-47.0); MCH 30.2 pg (26.0-34.0); MCHC 33.8 g/dL (28.0-37.0); MCV 89.4 fL (80.0-100.0); PLATELET COUNT 203 thou/uL (150-400); RBC 3.98 mil/uL (4.20-5.00)
--- NOTE | 2019-03-04 11:42 | HC ---
[facility] [place] [address] CONSULTATION Name: KENTRELL BREWER Room #: 201-P ADM IN M.R.#: [id number] Admission: 03/03/19 ������������������ Attend Phys: Jonnie Peter MD Discharge: ������������������ Date of : 86 Report #: [id number] THIS REPORT FOR: //name// CC: Jonnie MARTÍNEZ unknown DATE OF SERVICE: 03/03/2019 GASTROINTESTINAL CONSULTATION REASON FOR CONSULTATION: This is a 28-year-old woman known to me with recurrent hematemesis. HISTORY OF PRESENT ILLNESS: The patient is known to me from previous evaluation in November this year. I saw her in consultation at that time. In summary, she has a history of Crohn's disease. She has had previous proctocolectomy with a permanent ileostomy. That surgery was done in 2013. She subsequently developed ulcer disease and GI bleeding as well as abdominal pain. At this time, she was being treated in [place]. Due to recurrent bleeding and ulcer disease, she had a part of her stomach removed in 2014. She had a gastric bypass type surgery. She had received much of her care at [facility], but she was seen at [facility] in November with GI bleeding. An upper endoscopy was done at that time and she had deformed stomach with surgical changes consistent with William-en-Y gastric bypass type surgery. Bleeding site could not be identified. She had a very small pouch and there was a clot adherent to the gastrojejunal anastomosis. It was washed away, but a potential bleeding site could not be clearly identified. She has been subsequently readmitted to this hospital and Dr. Israel did an upper endoscopy on 01/17/2019 and blood clots were found, but again bleeding site could not be identified. She had a repeat scope the following day and again a bleeding site could not be identified. A bleeding scan was done and bleeding site was not identified. She was also scoped by Dr. Carlos Vo several days later. There was fresh and old blood in the stomach. There was an area of oozing in the stomach, thought possibly to be a Dieulafoy lesion and this was treated with a BiCap probe. The patient reports that she had further bleeding and went to [facility]. She tells me she had an upper endoscopy and she says the bleeding site could not be identified. She was discharged yesterday from [facility]. She reports that literally as she has been discharged she vomited bright red blood. However, they continued the discharge process. She then presented to [facility] today because she was upset with her care at [facility]. She was seen in the Emergency Room. Hemoglobin at [facility] [address] [place] [address] CONSULTATION Name: KENTRELL BREWER Room #: 201-P ADM IN M.R.#: [id number] Admission: 03/03/19 ������������������ Attend Phys: Jonnie Peter MD Discharge: ������������������ Date of : 88 Report #: [id number] this time is 13.7 and white count of 9.1, platelet count of 221,000. Electrolytes are unremarkable. Creatinine 0.7 and BUN of 13. Albumin of 3.7. In addition, she reports that she had a reddish material in the ostomy bag. PAST MEDICAL HISTORY: Recurrent ulcer disease and abdominal pain as noted above. She does have izl-lwufqmt-bsptdpquo diabetes mellitus. She suffers from posttraumatic stress disorder and depression. She has had previous appendectomy. 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 She has had a seizure disorder in the past. She has had pancreatitis in the past, almost related to medications. She has also been treated for C. diff. She did have a PEG tube in the past, but not recently. ALLERGIES: IV CONTRAST, TORADOL AND PENICILLIN. CURRENT MEDICATIONS: Prospect 5/325 every 4 hours as needed, Zofran 4 mg every 8 hours as needed for nausea, Keppra 500 mg twice daily, pantoprazole 40 mg twice daily, iron sulfate 325 mg daily. FAMILY HISTORY: No family history of colon cancer or ulcer disease. SOCIAL HISTORY: Does not smoke or consume alcohol. She is engaged and plans to be in about 2 weeks and will be relocating to [place]. REVIEW OF SYSTEMS: GENERAL: No change in weight, fever or chills. CENTRAL NERVOUS SYSTEM: Seizure disorder. No recent seizure activity on seizure medication. ENT: No change in vision, hearing or sores in the mouth. PULMONARY: No cough, pneumonia or tuberculosis. CARDIOVASCULAR: No chest pain, chest tightness or palpitations. GASTROINTESTINAL: Hematemesis and reddish stool material in the ostomy bag. GENITOURINARY: Without dysuria, pyuria, kidney stones, contracture or infections. GYNECOLOGIC: No discharges, bleeding or breast problems. MUSCULOSKELETAL: No arthralgias or myalgias. SKIN: Without rashes. PSYCHIATRIC: Posttraumatic stress disorder. ENDOCRINE: Fse-dsidkim-cahnpenfj diabetes. HEMATOLOGIC: Recurrent gastrointestinal bleeding. No cancers. PHYSICAL EXAMINATION: GENERAL: Well-developed, well-nourished, pleasant woman who is awake, alert and oriented, no acute distress. VITAL SIGNS: Blood pressure 130/80, pulse of 134. HEENT: Anicteric. Pupils equal and round. Oropharynx clear. [address] [address] CONSULTATION Name: KENTRELL BREWER Room #: 201-P [facility] IN ..#: [id number] Admission: 03/03/19 ������������������ Attend Phys: Jonnie Peter MD Discharge: ������������������ Date of : 86 Report #: [id number] NECK: Supple. CHEST: Clear. HEART: Regular rate and rhythm, normal S1, S2. ABDOMEN: Normal bowel sounds, soft, nontender without hepatosplenomegaly or masses. Looking through her ostomy bag, there is a reddish fecal material in her ileostomy bag. She also is holding an emesis basin with a small amount of dark red blood present. RECTAL: She has had a proctectomy. EXTREMITIES: Without cyanosis, clubbing or edema. ASSESSMENT: 1. Recurrent gastrointestinal bleeding. 2. Status post gastrectomy due to gastrointestinal bleeding. 3. History of Crohn's disease, status post proctocolectomy. 4. Posttraumatic stress disorder. 5. Non-insulin dependent diabetes. COMMENT: Discussed with the patient. She was just scoped several days ago. This has been a recurring problem. It is noted, Dr. Martinez did find a bleeding site, which was treated recently. The patient desires to have further investigation. 1. Agree with PPI. 2. Planning for an upper endoscopy tomorrow or sooner if needed. 3. Hydration regarding tachycardia. 4. Monitor hemoglobin. ��������������������������������������������� <ELECTRONICALLY SIGNED> ���������������������������������������� By: Jagdeep Bush MD ��������������������������������������������� 03/04/19 1142 1742 29 Jagdeep Bush MD /nt
[2019-03-04 11:51] LABS: ABSOLUTE NEUTROPHILS 6.9 thou/uL (1.4-8.2)
--- NOTE | 2019-03-04 14:15 | NUR ---
ASSUMED CARE OF PT APPRO 1330. PT'S MOTHER VERY ANGER REGARDING PATIENT'S CARE AND THIS NURSE TOOK OVER. PT STATES SHE IS IN PAIN AND UNABLE TO TAKE PO DUE TO VOMITING. PT STATED SHE HAD BLOOD IN VOMIT. DR. FRY AND RENA CAMPBELL ARE AWARE. CALLED DR. FRY FOR PAIN MED AND HE ORDERED TORADOL HOWEVER PT STATES THIS GAVE HER HIVES. AT APPROX 1400 PT SHAKING AND STATED SHE WAS COLD AND DOES NOT FEEL WELL. PT APPEARED TO HAVE SEIZURE WITH WITH MORE SHAKING AND EYES ROLLED BACK. LASTED LESS THAN ONE MINUTE, AND PT A&O AFTERWARDS, PT WAS NOT INCONTINENT. DR. FRY CALLED AND ORDERED ATIVAN 2MG IV. PT'S HEART RATE 150'S, AFEBRILE, BLOOD PRESSURE VASSILATE BETWEEN 149/78, 136/117, 109/84.
[2019-03-05 03:56] VITALS: BP 104/64
--- NOTE | 2019-03-05 04:15 | NUR ---
Patient making slow progress towards outcome goals. BP and rhythm stable. Febrile, Tylenol given with small sip of water. Calmer with Lorazepan states it helps keep pain level down. Uses call ligh appropriately for needs.
[2019-03-05 05:42] LABS: HEMATOCRIT 36.4 % (37.0-47.0); HEMOGLOBIN 12.3 gm/dL (12.0-15.0)
[2019-03-05 08:23] VITALS: BP 91/48
--- NOTE | 2019-03-05 11:27 | NUR ---
PTs IV SITE ON LEFT FORARM WAS PINK WARM AND PAINFUL, WITH HARD AREA 1CM. IV TEAM CALLED AND PUT IN RIGHT HAND IV AND STATED THAT BOTH ARMS OCCLUDED. HARD AREA ON RIGHT FORARM PROXIMAL TO AC. DR. FRY NOTIFIED - NO NEW ORDERS.
[2019-03-05 12:14] VITALS: BP 91/53
--- NOTE | 2019-03-05 13:42 | P ---
[facility] [place] [address] PROCEDURE REPORT Name: KENTRELL BREWER Room #: 201-P ADM IN M.R.#: [id number] Admission: 03/03/19 ������������������ Attend Phys: Jonnie Peter MD Discharge: ������������������ Date of : 88 Report #: [id number] THIS REPORT FOR: //name// CC: Jonnie Peter FAM unknown INPATIENT UPPER ENDOSCOPY REPORT BRIEF HISTORY: The patient is a 28-year-old woman with recurrent hematemesis. She reports she was admitted to [facility] early this week for hematemesis. She now presents to [facility] for the same problem and desires not to go back to [facility]. PREOPERATIVE DIAGNOSIS: History of ulcer disease with previous gastric surgery for gastrointestinal bleeding with recurrent gastrointestinal bleeding. POSTOPERATIVE DIAGNOSES: 1. Few nonbleeding gastric erosions. 2. Surgical changes in the stomach consistent with gastrectomy and William-en-Y reconstruction. MEDICATIONS: Deep sedation with propofol per anesthesia. SPECIMEN: None. ESTIMATED BLOOD LOSS: None. PROCEDURE: EGD. FINDINGS: Prior to propofol sedation, procedure of upper endoscopy was reviewed with the patient as well as potential risks and its complications. She indicates she understands and desires to proceed. DESCRIPTION OF PROCEDURE: With the patient in left lateral decubitus position, the Olympus video endoscope was inserted in the cervical esophagus under direct vision without difficulty. Examination of this organ through its entire length revealed normal esophageal mucosa down the squamocolumnar junction. Squamocolumnar junction was inspected. There was no evidence of ulcers, erosions or bleeding lesions. Hiatus hernia was not seen. The scope was advanced into the stomach. Once again, there is evidence of a previous gastrectomy. Interestingly, she reports she had gastric surgery due to recurrent GI bleeding in [place] from ulcer disease. Endoscopically, the findings are essentially the same as a bariatric William-en-Y gastric bypass. There is a small gastric pouch. There was no blood in the pouch whatsoever. The anastomosis was inspected. There was an erosion along the anastomosis, it was very superficial. There were no exposed vessels or clots. Upon retroflexion, no lesions were seen in the proximal stomach. The anastomosis was [facility] [address] [place] [address] PROCEDURE REPORT Name: KENTRELL BREWER Room #: 201-P ADM IN M.R.#: [id number] Admission: 03/03/19 ������������������ Attend Phys: Jonnie Peter MD Discharge: ������������������ Date of : 88 Report #: [id number] intact without evidence of bleeding. The scope was passed to the blind end of the small bowel, which was unremarkable. The scope was then advanced through its full length into the jejunum. Today, I was able to advance the scope to the level of the William-en-Y anastomosis. The William-en-Y anastomosis was unremarkable. I was able to advance the scope into the William limb. The scope was advanced through its entire length, but I was not able to reach the proximal stomach. At that point, the scope was slowly withdrawn and careful circumferential views were obtained. No blood was seen. No bleeding sites were identified. The scope was withdrawn back towards the stomach. In the very proximal segment, we were able to retroflex the scope and examined the gastrojejunal anastomosis in the retroflexed position and no abnormalities were seen. The scope was withdrawn. The patient tolerated the procedure well. DISPOSITION: The patient reports hematemesis and GI bleeding. Again, a bleeding source cannot be identified. This case has been very perplexing. First of all, she has received health care in multiple locations including [place]. She has been admitted to this institution several times for GI bleeding. Most of the time, a significant bleeding site could not be identified. I reviewed the photographs from an endoscopy on 01/20, completed by Dr. Vo. There was clearly a clot in the stomach pouch. There was a nonbleeding lesion on the anastomosis that he thought was a vessel. This was cauterized and destroyed. However, most of the time, no lesions could be identified. When seen in the ER last night, she had an emesis bag with about 10 mL of dark bloody material. She showed me her ostomy bag. There was reddish material with the contents of the ostomy bag. It was not dark, but fairly bright red, which was a little surprising as I would expect as a one to the small bowel, it would become darker and even black. Today, the contents of the ostomy bag are completely normal and clear. I think we have to consider the possibility that she is not fully forthright with her history. I wonder if she is swallowing blood or adding something to her ostomy bag. However, it is confusing as Dr. Vo did find a lesion that he thought was a potential bleeding site. Regardless, at this point, would treat with a PPI. We will advance diet today. Continue to monitor hemoglobin. It is also noted that her hemoglobin is not yet available today, but when she came in yesterday, it was 13.7. It is also noted that her BUN and creatinine are well within the normal range and there was no elevation of BUN as you would possibly expect with an upper GI bleed. ��������������������������������������������� <ELECTRONICALLY SIGNED> ���������������������������������������� By: Jagdeep Bush MD ��������������������������������������������� 03/05/19 1342 0909 Jagdeep Bush MD /judith
[2019-03-05 15:00] VITALS: BP 93/53
--- NOTE | 2019-03-05 15:36 | NUR ---
AT 1500 PT HAD 2 CLONIC SEIZURES LASTING LESS THAN 30 SECONDS IN A ROW. PT A&OX4 AFTER EACH EVENT. PT DID NOT HAVE INCONTENENCE. VITALS WERE BP: 93/53 HR: 114, RR: 28, TEMP 99.3, O2: 98% AT APPROX 1520 PT ASKED FOR PAIN MED AND WAS GIVEN LIQUID HYDROCODONE. PT STATED THAT SHE WASN'T GETTING PAIN RELIEF AND NEEDED A ONE TIME DOSE OF FENT. SHE STATED THAT SHE DID NOT THINK WE WERE HELPING HER HERE AND WANTED TO BE DISCHARGE. DR. ANG ESTRELLA
--- NOTE | 2019-03-05 16:00 | NUR ---
PAGED DR FRY THIS AM ABOUT THE ERYTHEMA AND EDEMA IN RT AC AREA (PREVIOUS IV ATTEMPT AT [facility]) AND LT OUTER LOWER FOREARM ( SITE OF PIV FROM 03/05). AFTER ASSESSING BOTH VESSELS WITH US AND VEINS WERE NON-COMPRESSIBLE AND PAINFUL, RECOMMENDED A DIAGNOSITIC US TO RULE OUT DVT. RECOMMENDED HEAT AND TO WATCH FORF INFECTION. PT HAS HX OF OCCLUDED VESSELS AND CLOTTING.
--- NOTE | 2019-03-05 17:59 | NUR ---
ASSUMED CARE OF PT AT 0700. PT A&OX4, UP WITH STANDBY. PT RUNNING FEVER AND DR. FRY STARTED ON ABX. PT SAD AND FRUSTRATED THAT PAIN/SEIZURES ARE NOT IN CONTROL. DR. VALENZUELA. PT NOT EATTING OR DRINKING AND STATES SHE IS UNABLE TO KEEP ANYTHING DOWN. PT GIVEN MILK AND SUZIE CRACKERS AND PT STATED SHE DRANK MILK BUT THREW UP (NOT WITTNESSED). PT HAD TWO SEIZURES TODAY, KEPPRA INCREASED. PT COMPLAINED THAT ATIVAN MADE HER SLEEP ALL DAY YESTERDAY. VITALS: BLOOD PRESSURE HAS BEED LOW BUT PT NOT SYMPTOMATIC. PT WAS SINUS RHYTHM ON MONITOR WITH SINUS TACH IN 130'S DURING CLONIC SEIZURE ACTIVITY. PT HAS CUP FOR STOOL SAMPLE FROM ILLEOSTOMY BUT HAS NOT PROVIDED SAMPLE YET. PT DOES ALL HER OWN OSTOMY CARES. WILL CONT WITH POC.
[2019-03-05 19:48] VITALS: BP 90/55
[2019-03-05 20:15] VITALS: BP 92/54
[2019-03-06 01:17] VITALS: BP 92/54
[2019-03-06 03:06] VITALS: BP 92/54
--- NOTE | 2019-03-06 03:52 | NUR ---
ASSUMED CARE 1900. VSS. BP 90'S ASYMPTOMATIC. PT STATED EMESIS AND NAUSEA DURING AM, DENIES N/V THIS SHIFT. PT HAD X2 SODAS. PT C/O GENERALIZED AB PAIN 10/10, PARTIAL CONTORLED WITH PRN ANXIETY AND PAIN MEDS PER EMAR. PT REQUESTING X1 DOSE OF [facility] [facility] [employer] NOTIFIED NO NEW ORDERS GIVEN. 2014 PT HAD 30 SEC SEIZURE( EYES ROLLED BACK BI LAT HANDS CLINCHED) WITNESSED, VITALS T 36.4, HR 80, BP 92/54, RR 16, O2 100%. SCHEDULED INCREASED DOSE IVPG OF LEVETARACETAM PER EMAR, NO SEIZURES SINCE NEW DOSE, WILL CONTINUE TO MONITOR AND WITH POC.
[2019-03-06 08:00] VITALS: BP 94/57
[2019-03-06] MEDS ORDERED: LEVAQUIN 500 M500 M2 PO (09:03)
[2019-03-06] MEDS ORDERED: FLAGYL500 M1 PO (09:04)
[2019-03-06] MEDS ORDERED: NORCO 5-325 TA1 EACH PO (09:04)
[2019-03-06] MEDS ORDERED: KEPPRA750 MG PO (09:05)
[2019-03-06 10:34] VITALS: BP 94/57
--- NOTE | 2019-03-06 11:46 | NUR ---
ASSESSMENT CHARTED - MEDS PER DEC - NO CO'S OF PAIN OR NAUSEA - TAKING SIPS OF LIQUIDS WITH NO EMISIS. UP IN ROOM. PT STATED THAT SHE FELT A LITTLE LIGHTHEADED AND WANTED TO LAY DOWN - PT THEN PROCEDED TO HAVE -SIEZURE LIKE ACTIVITY - ROLLED EYES BACK IN HEAD AND WAS JERKING . THIS LASTED APPROX 1 MINUTE SHE WAS SOMEWHAT SLEEPY AFTER SIEZURE ACTIVITY - WAS ABLE TO TO ATTEND TO PHONE. PT HOME THIS AM - INSTRUCTION RE MEDS/FOLLOW UP CARE GIVEN TO PATIENT STATED UNDERSTANDING ON INSTRUCTION GIVEN. MOTHER IN AT TIME OF D/C. WNATING TO KNOW WHY SOME TESTING THAT SHE WAS TOLD WAS GOING TO DONE WAS NOT AND WHY WAS SHE BLEEDING. ANSWER QUESTIONS FOR HER. PATIENT LEFT UNIT VIA WHEELCHAIR - HOME VIA PVT VEHICLE ACCOMAPNIED BY GRACIELA.
== END 2019-03-06 11:45 | disposition home or self-care (01) | DRG 377 ==
LOC: ER 13:32 → EROBS 16:19 → 2N 18:10
PROVIDERS: Emergency Medicine; Hospitalist; Nurse Practitioner; Physician Assistant; ADMIT Hospitalist
PROC: 0DJ08ZZ Inspection of Upper Intestinal Tract, Via Natural or Artificial Opening Endoscopic (ICD-10-PCS; principal; 2019-03-04)
DX: K25.4 Chronic or unspecified gastric ulcer with hemorrhage (principal); E43 Unspecified severe protein-calorie malnutrition; K50.90 Crohn's disease, unspecified, without complications; E11.9 Type 2 diabetes mellitus without complications; F32.9 Major depressive disorder, single episode, unspecified; F43.10 Post-traumatic stress disorder, unspecified; F42.9 Obsessive-compulsive disorder, unspecified; G40.909 Epilepsy, unspecified, not intractable, without status epilepticus; F41.9 Anxiety disorder, unspecified; K52.9 Noninfective gastroenteritis and colitis, unspecified; I95.9 Hypotension, unspecified; Z86.718 Personal history of other venous thrombosis and embolism; Z87.11 Personal history of peptic ulcer disease; Z68.21 Body mass index [BMI] 21.0-21.9, adult; Z90.49 Acquired absence of other specified parts of digestive tract; Z98.84 Bariatric surgery status; Z90.3 Acquired absence of stomach [part of]; Z79.4 Long term (current) use of insulin; Z79.899 Other long term (current) drug therapy; Z88.0 Allergy status to penicillin; Z88.8 Allergy status to other drugs, medicaments and biological substances; Z91.041 Radiographic dye allergy status; Z83.3 Family history of diabetes mellitus
CPT/HCPCS: 10081; 10194; 62110; 62900; 70005